=== PATIENT | male | born 1995 | race Caucasian/White ===

== ENCOUNTER 2018-11-24 13:22 | Inpatient (IN) ==
[2018-11-24] MEDS ORDERED: SODIUM CHLORIDE 0.9% 1000ML 2,000 ML IV ONE (13:27)
[2018-11-24] MEDS ORDERED: SEVERE STRESS LEVEL ONE (13:47)
[2018-11-24] MEDS ORDERED: DKA GOAL RANGE 150-250 mg/dl ONE ×2 (13:47→16:26)
[2018-11-24 13:58] LABS: iSTAT Blood Urea Nitrogen 46 mg/dl (7-18); iSTAT Carbon Dioxide 8 mEq/l (24-31); iSTAT Glucose > 700 mg/dl (70-99); iSTAT Hemoglobin 16.3 g/dl (14.0-18.0); iSTAT Ionized Calcium 1.06 mmol/l (1.12-1.32)
[2018-11-24 14:00] LABS: Hematocrit (blood only) 47.8 % (42-52); INR 1.1 (0.9-1.1); Mean Corpuscular Hgb Conc 33.5 g/dL (32-36); Mean Corpuscular Volume 94.3 fL (80-100); Mean Platelet Volume 11.8 fL (7.4-10.4); Partial Thromboplastin Time 25.7 Seconds (21.0-31.0); Platelet Count 474 K/uL (130-400); Prothrombin Time 11.4 Seconds (9.0-12.0); RDW Coefficient of Variation 13.3 % (11.5-14.5); RDW Standard Deviation 45.4 fL (36.4-46.3); Red Blood Count 5.07 M/uL (4.7-6.1); White Blood Count 29.59 K/uL (4.8-10.8)
[2018-11-24] MEDS ORDERED: NovoLIN-R BOLUS FROM BAG IV ONE (14:01)
[2018-11-24] MEDS ORDERED: GLUCAGON FOR INJ 1 MG VIAL IM PRN (14:01)
[2018-11-24] MEDS ORDERED: GLUCOSE 40% GEL 15 GM TUBE PO PRN (14:01)
[2018-11-24] MEDS ORDERED: CARBOHYDRATES FOR HYPOGLYCEMIA PO PRN (14:01)
[2018-11-24] MEDS ORDERED: GLUCOSE 10 TABS/TUBE PO PRN (14:01)
[2018-11-24] MEDS ORDERED: DEXTROSE 50% 50 ML SYRINGE IV PRN (14:01)
--- NOTE | 2018-11-24 14:08 | XRay Report ---
SINGLE VIEW CHEST CLINICAL HISTORY: Change in mental status. FINDINGS: An AP, portable, upright chest radiograph is obtained. No prior studies are available for c omparison at the time of dictation. The cardiomediastinal silhouette is unremarkable. The lungs and pleural spaces are clear. No pneumothorax is seen. The bony thorax is grossly intact. IMPRESSION: No active disease in the chest. Electronically signed by: Jaren Sosa M.D. 11/24/2018 2:07 PM
[2018-11-24 14:13] LABS: Basophils % (auto) 0.3 %; Echinocytes 1+; Eosinophils # (auto) 0.03 K/uL (0-0.5); Eosinophils % (auto) 0.1 %; Immature Granulocytes # (auto) 0.69 K/uL (0.00-0.02); Immature Granulocytes % (auto) 2.3 %; Lymphocytes # (auto) 2.26 K/uL (1.2-3.4); Lymphocytes % (auto) 7.6 %; Monocytes # (auto) 2.93 K/uL (0.11-0.59); Monocytes % (auto) 9.9 %; Neutrophils # (auto) 23.58 K/uL (1.4-6.5); Neutrophils % (auto) 79.8 %; Spherocytes 1+
[2018-11-24] MEDS: INSULIN REGULAR 250 UNITS in SODIUM CHLORIDE 0.9% 247.5 ML IV SCH (14:14)
[2018-11-24] MEDS ORDERED: SODIUM CHLORIDE 0.9% 1000ML 1,000 ML IV ONE (14:15)
[2018-11-24 14:18] LABS: Alanine Aminotransferase 19 U/L (12-78); Albumin Level 4.4 gm/dl (3.4-5.0); Aspartate Aminotransferase 6 U/L (15-37); BUN Creatinine Ratio 13.4 (10-20); Bilirubin,Total 0.6 mg/dl (0.2-1); Blood Urea Nitrogen 54 mg/dl (7-18); Calcium 7.9 mg/dl (8.5-10.1); Carbon Dioxide 6 mmol/L (21-32); Chloride 86 mmol/L (98-107); Creatinine Clr Calc Pharmacy 24.7 ml/min; Est GFR (Non-African American) 19.8; Glucose 1275 mg/dl (70-99); Magnesium 3.1 mg/dl (1.8-2.4); Potassium 5.7 mmol/L (3.5-5.1); Sodium 129 mmol/L (136-145)
[2018-11-24 14:19] LABS: Albumin Globulin Ratio 1.3 (0.9-2); Alkaline Phosphatase 118 U/L (45-117); Globulin 3.4 gm/dl (2.5-4.0); Total Protein 7.8 gm/dl (6.4-8.2); Troponin I < 0.015 ng/ml (0-0.045)
[2018-11-24] MEDS ORDERED: CEFEPIME 1,000 MG in SYRINGE 0 ML IV STA (14:21)
[2018-11-24 14:25] LABS: iSTAT Arterial Blood Gas HCO3 3 meg/L (19-24); iSTAT Carbon Dioxide < 5 mEq/l (24-31); iSTAT Hemoglobin 11.9 g/dl (14.0-18.0)
[2018-11-24 14:36] LABS: Phosphorus 12.6 mg/dl (2.5-4.9)
[2018-11-24 14:39] LABS: Appearance Urine Cloudy (Clear); Bacteria Urine Automated Negative (Negative); Bilirubin Urine Negative (Negative); Color Urine Yellow; Glucose Urine UA 3+ (Negative); Ketones Urine 2+ (Negative); Leukocyte Esterase Urine Negative (Negative); Nitrite Urine Negative (Negative); Protein Urine 2+ (Negative); Specific Gravity Urine 1.027 (1.000-1.030); Urobilinogen Urine Negative (Negative)
[2018-11-24] MEDS ORDERED: LACTATED RINGER'S 1,000 ML IV ONE (14:40)
[2018-11-24 14:47] LABS: Amphetamines+Metham, Urine Neg (Neg); Barbiturates, Urine Neg (Neg); Benzodiazepine, Urine Neg (Neg); Cocaine, Urine Neg (Neg); MDMA (Ecstacy), Urine Neg (Neg); Methadone, Urine Neg (Neg); Opiate, Urine Neg (Neg); Phencyclidine, Urine Neg (Neg)
--- NOTE | 2018-11-24 15:14 | CT Scan Report ---
CT SCAN OF THE BRAIN WITHOUT IV CONTRAST CLINICAL HISTORY: Change in mental status. COMPARISON STUDY: No priors. TECHNIQUE: Unenhanced axial CT scan of the brain is performed from the vertex to the skull base. A d ose lowering technique was utilized adhering to the principles of ALARA. The patient was scanned twic e due to motion artifact. CT DOSE: 1228.53 mGy.cm FINDINGS: Brain parenchyma: The brain parenchyma is normal in appearance. There is no hemorrhage, mass effect, or evidence of acute territorial ischemia by CT criteria. Castillo-white matter differentiation is preser brina. No extra-axial fluid collection is seen. Ventricles, sulci, cisterns: Normal in configuration. Intracranial vasculature: The visualized intracranial vasculature at the skull base is normal in appe arance. Calvarium: Unremarkable. Sinuses and mastoids: The visualized paranasal sinuses are clear. The mastoid air cells are well pneu matized. Orbits: The bony orbits are grossly intact. IMPRESSION: No acute intracranial abnormality. Electronically signed by: Jaren Sosa M.D. 11/24/2018 3:12 PM
[2018-11-24 15:26] LABS: Glucose 948 mg/dl (70-99)
--- NOTE | 2018-11-24 15:33 | History & Physical Report ---
Date of Service November 24, 2018 Assessment & Plan (1) DKA (diabetic ketoacidoses): No known hx of DM DKA protocol Pt states hx of similar but more mild sx about 2 years ago Tx at [facility] Seems unlikely this was related to hyperglycemia at that time without tx in that interval Records requested (2) Altered mental status: Improving s/p IVF and insulin CT head neg Utox neg (3) Electrolyte abnormality: HypoNa, hyperK, hyperMg, hyperPhos--in the setting of DKA Monitor via protocol as BS improves (4) Leukocytosis: UA neg for infection CXR neg for infection Flu swab pending Likely stress reaction from DKA (5) Lactic acidosis: As above Likely related to DKA (6) DVT prophylaxis: SCDs Admitted to ICU, critical care time spent >40 minutes History of Present Illness Primary Care Provider: NO PCP 23 y/o M who was brought to the ED by his roommate after being found unresponsive. Pt has been feeling unwell for the last 3 days. He has had n/v and abd cramping. He has had almost no appetite, but what he tries to eat he cannot keep down at all. He went to the gym with his roommate last week and noted that he had lost about 30 lbs in the last month. Pt states he remembers waking up this AM and feeling unwell, so he called [facility] to make an urgent appt. He remembers waiting about an hour for them to call back and then has no further memory until waking up in the ED this afternoon. Roommate is present and states he found pt unresponsive in his room. Does note that pt has been quite sick with n/v as noted above. Pt denies fever, chest pain, c/d, LE pain or swelling. Pt states he has been SOB the last few days. He has had a hard time thinking. Pt states he feels much improved. Still feels his thinking is cloudy. Still SOB. Mild nausea but no recent emesis. Pt states he has no medical hx. He does note that he had something similar happen 2 yrs ago, but not as severe. He states he lost about 10 lbs and was having n/v. He was seen at [facility] and given two medications. One he believes was an abx for an ear infection, but he does not know what the other was. He took these medications for about a week and his sx resolved. Allergies Allergy/AdvReac Type Severity Reaction Status Date / Time No Known Allergies Allergy Unverified 11/24/18 14:39 Home Medications Home Medications Medication Instructions Recorded Confirmed Type No Known Home Medications 11/24/18 11/24/18 History Past Med/Surg History Medical History No active medical problems (Acute) Social History Current Living Situation: Other Current Living Situation Comment: Roommate current occupational status: student Feels Safe at Home: Yes Smoking Status: Never smoker Hx Alcohol Use: Yes (rare) Hx Substance Use: No Review of Systems Pertinent positives and negatives reviewed in HPI--all others negative Physical Exam 2 Vital Signs (Past 24 Hours): Last Vital Signs Temp 35.9 C L 11/24/18 13:34 Pulse 154 H 11/24/18 15:20 Resp 32 H 11/24/18 15:20 BP 119/78 11/24/18 15:20 Pulse Ox 100 11/24/18 15:20 Constitutional: WD/WN, vitals as above Eyes: normal visual rae by confrontation and + anicteric sclerae Neck: normal visual inspection and trachea midline Respiratory: + respiratory distress (mild, able to talk but with slightly increased work of breathing between sentences) and + labored breathing Auscultation: no crackles and no wheezes Cardiovascular: Rate/Rhythm: regular rate and regular rhythm Gastrointestinal (Abdomen): Inspection/Auscultation: abdomen not distended Percussion/Palpation: abdomen soft; abdomen nontender Musculoskeletal: Head/Neck/Chest: normocephalic and head atraumatic negative for edema, peripheral pulses intact Skin: no rashes, warm and dry Neurologic: awake; not confused Speech / Cognition: normal speech Psychiatric: A+Ox3, euthymic affect Results & Data Diagnostic Findings CXR: neg for acute CT head: neg for acute Code Status & VTE Plan Code Status Full code VTE Prophylaxis Plan VTE Prophylaxis will be ordered: Yes _ (1) DKA (diabetic ketoacidoses) Diabetes mellitus complication detail: Diabetes mellitus type: (2) Altered mental status Altered mental status type: unspecified Coma depth: Coma timing: Qualified Code(s): R41.82 - Altered mental status, unspecified
--- NOTE | 2018-11-24 16:10 | Critical Care Consultation ---
Date of Consultation November 24, 2018 Assessment & Plan (1) Metabolic acidosis: 23yo previously healthy male presented with altered mental status in the setting of persistent nausea/vomiting and decreased PO intake x 3 days. Was found to be hyperglycemia with concern for DKA. NEURO: Initially altered but now alert and oriented s/p insulin and IVFs CAM ICU: negative CT head negative CARDIAC/VASCULAR: Remains tachycardic but hypotension improved s/p IVFs EK Sinus tachycardia with peaked T waves QTc 458 CXR: negative Trop negative x 1 PULM: Tachypneic in the setting of metabolic acidosis On 3L NC ABG: Ph 7.02, CO2 10, pO2 139 and HCO3 - 3 CXR: negative Wean O2 as tolerated GI: NPO pending improvement in glucose RENAL/LYTES: Electrolyte abnormalities and RAS due to decreased renal perfusion in the setting of DKA K 5.77, Bicarb 6, Phos 12.6, Mag 3.1, Na 129 - corrected 140 BUN/Cr 54/4 On insulin and IVFs per DKA protocol Monitor electrolytes closely per DKA protocol : [place] in place - UOP 850cc rate 0.59cc/kg/hr UA: 3+ glucose, 2+ ketones Utox: negative ENDO: Hyperglycemia with metabolic acidosis consistent with DKA No previous hx of diabetes Initial PH 7.02, bicarb 6, 2+ urine ketones, AG 38 Serum Osm pending Received 4L IVF bolus On NS 250mls/hr and insulin drip per DKA protocol - adjust accordingly and convert to SQ insulin when indicated Glycemic consult placed Monitor ABG, BMP, Mag, Phos Q4H until gap closes, glucose and electrolyte abdnormalities improve HEME: WBC 29.5 like reactive in the setting of DKA Thrombocytosis Plt 474 likely from hemoconcentration Coags wnl Monitor CBC closely ID: No infectious concern at this time BCx x 2 pending CXR negative POC lactate 6.2 and WBC 29.5 likely stress response in the setting of DKA LINES: 2 PIVs DVT prop: SCDs Code: Full Dispo: pending clinical improvement (2) Hyperglycemia: (3) DKA (diabetic ketoacidoses): (4) Altered mental status: Supervising Physician Co-Signing Physician Notes Dr. Colin was resident physician during care of patient. I separately evaluated patient for cox portions of the history and the exam. I was present during the critical portion of medical decision making, and I discussed the case with the resident. I generally agree with the findings and plan. Patient's mental status starting to improve, significant lactic acidosis along with elevated beta hydroxybutyrate. Patient will be monitored with every 4 labs hyperkalemia is likely secondary to profound metabolic acidosis which will correct as patient's acidosis corrects volume expansion with crystalloid. I have personally spent 40 minutes of critical care time in the direct management of this patient. This is a life/limb threatening event. This includes time spent evaluating patient, direct bedside care, chart review, placing orders, interpretation of diagnostic studies, discussion with consultants, patient, and/or family members regarding treatment decisions, as well as other required patient management activities. This time is exclusive of all separately billable procedures, and teaching time and separate from and in addition to any other critical care service time. History of Present Illness Reason for Consultation: DKA Requesting Physician: Dr. Dayami Nagel History of Present Illness 23yo previously healthy male without hx of diabetes presented with altered mental status and was found to have DKA. Per patient's friend, patient was not feeling well for the past 3 days. He was nauseous and vomiting. He was unable to keep anything down. Pt attempted to go to [facility] today but there was a long wait and came back to his apartment. His friend later found him unresponsive in his bathroom. There was green vomit in the toilet as well. He was brought to the ED. Per friend, he checked with pt's family and he does not have hx of diabetes. In the ED, he was found to be tachycardic to 140s (SR) and hypotensive. He was found to have glucose of 1275. On ABG, he had a PH of 7.02, CO2 was 10 and HCO3 of 3. He had electrolyte abnormalities: K 5.7, Na 129 (corrected Na 140), bicarb 6, Phos 12.6, Mag 3.1, BUN/Cr was 54/4. UA was positive for glucose and ketones. Troponin was negative. WBC was 29.5. POC lactate was 6.2. CXR was negative. Blood cultures were collected. CT head was negative. He received 3L of NS bolus and 1L or LR bolus and was started on insulin drip with improvement in his mental status. Allergies Allergy/AdvReac Type Severity Reaction Status Date / Time No Known Allergies Allergy Unverified 11/24/18 14:39 Home Medications Home Medications Medication Instructions Recorded Confirmed Type No Known Home Medications 11/24/18 11/24/18 History Patient History Medical History No active medical problems (Acute) Social History Current Living Situation: Alone Current Living Situation Comment: Roommate current occupational status: student Other Information That Helps Us Care for You: No Feels Safe at Home: Yes Smoking Status: Never smoker Do You Dip or Chew Tobacco: No Second Hand Exposure: No Tobacco Cessation Education Requested by Patient: No Hx Alcohol Use: No Hx Substance Use: No Beliefs That Will Affect Care: None Preferred Language: Guyanese Communication Ability: Effective State Pilot Required: No Review of Systems Pt currently denies any f/c, sob, cp, n/v, abdominal pain, BALLARD/dizziness. Physical Exam 2 Vital Signs (Past 24 Hours): Last Vital Signs Temp 35.9 C L 11/24/18 13:34 Pulse 148 H 11/24/18 15:40 Resp 30 H 11/24/18 15:40 BP 135/74 11/24/18 15:40 Pulse Ox 100 11/24/18 15:40 Physical Exam: General: In mild distress, resting in bed and mildly tachypneic HEENT: dry mucous membranes and fruity mouth odor Neuro: alert and oriented x 3 CV: tachycardic with regular rhythm, no m/r/g, cap refill 2 secs Pulm: CTAB equal breath sounds bilaterally Abdomen: +BS, non-distended, non-tender to palpation in all quadrants Extremities: No lower extremity edema or calf tenderss, warm to touch and well perfused Results & Data Laboratory Results Abnormal lab results 11/24/18 11/24/18 11/24/18 Range/Units 13:27 13:35 13:35 WBC 29.59 H (4.8-10.8) K/uL POC Hgb (14.0-18.0) g/dl POC Hct (42-52) % Plt Count 474 H (130-400) K/uL MPV 11.8 H (7.4-10.4) fL Immature Gran # (Auto) 0.69 H (0.00-0.02) K/uL Neut # (Auto) 23.58 H (1.4-6.5) K/uL [place] # (Auto) 2.93 H (0.11-0.59) K/uL POC pH (7.35-7.45) POC pCO2 (35-46) mmHg POC pO2 (80-95) mmHg POC HCO3 (19-24) obed/L POC Base Excess (-9-1.8) obed/L POC Sodium (135-144) mEq/L Sodium 129 L (136-145) mmol/L POC Potassium (3.3-5.0) mEq/L Potassium 5.7 H (3.5-5.1) mmol/L POC Chloride (101-112) mEq/L Chloride 86 L (98-107) mmol/L Carbon Dioxide 6 L* (21-32) mmol/L POC Total CO2 (24-31) mEq/l Anion Gap 38.0 H (3-11) POC Anion Gap (16-25) mmol/L POC BUN (7-18) mg/dl BUN 54 H (7-18) mg/dl Creatinine 4.04 H (0.6-1.4) mg/dl POC Creatinine (0.6-1.3) mg/dl Glucose 1275 H* (70-99) mg/dl POC Glucose > 600 H* (70-99) POC Glucose (other) (70-99) mg/dl POC Lactic Acid Luciano (0.90-1.70) mmol/L Calcium 7.9 L (8.5-10.1) mg/dl POC Ioniz Calcium Judith (1.12-1.32) mmol/l Phosphorus 12.6 H (2.5-4.9) mg/dl Magnesium 3.1 H (1.8-2.4) mg/dl AST 6 L (15-37) U/L Alkaline Phosphatase 118 H (45-117) U/L Urine Appearance (Clear) Urine Protein (Negative) Urine Glucose (UA) (Negative) Urine Ketones (Negative) Urine Blood (Negative) U Epithel Cells (Auto) (0-5) /lpf 11/24/18 11/24/18 11/24/18 Range/Units 13:42 13:50 14:08 WBC (4.8-10.8) K/uL POC Hgb (14.0-18.0) g/dl POC Hct (42-52) % Plt Count (130-400) K/uL MPV (7.4-10.4) fL Immature Gran # (Auto) (0.00-0.02) K/uL Neut # (Auto) (1.4-6.5) K/uL [place] # (Auto) (0.11-0.59) K/uL POC pH (7.35-7.45) POC pCO2 (35-46) mmHg POC pO2 (80-95) mmHg POC HCO3 (19-24) obed/L POC Base Excess (-9-1.8) obed/L POC Sodium 130 L (135-144) mEq/L Sodium (136-145) mmol/L POC Potassium 5.9 H (3.3-5.0) mEq/L Potassium (3.5-5.1) mmol/L POC Chloride 96 L (101-112) mEq/L Chloride (98-107) mmol/L Carbon Dioxide (21-32) mmol/L POC Total CO2 8 L* (24-31) mEq/l Anion Gap (3-11) POC Anion Gap 33.0 H (16-25) mmol/L POC BUN 46 H (7-18) mg/dl BUN (7-18) mg/dl Creatinine (0.6-1.4) mg/dl POC Creatinine 3.2 H (0.6-1.3) mg/dl Glucose (70-99) mg/dl POC Glucose (70-99) POC Glucose (other) > 700 H* (70-99) mg/dl POC Lactic Acid Luciano 6.21 H (0.90-1.70) mmol/L Calcium (8.5-10.1) mg/dl POC Ioniz Calcium Judith 1.06 L (1.12-1.32) mmol/l Phosphorus (2.5-4.9) mg/dl Magnesium (1.8-2.4) mg/dl AST (15-37) U/L Alkaline Phosphatase (45-117) U/L Urine Appearance Cloudy H (Clear) Urine Protein 2+ H (Negative) Urine Glucose (UA) 3+ H (Negative) Urine Ketones 2+ H (Negative) Urine Blood Trace H (Negative) U Epithel Cells (Auto) 10-20 H (0-5) /lpf 11/24/18 11/24/18 Range/Units 14:09 14:50 WBC (4.8-10.8) K/uL POC Hgb 11.9 L (14.0-18.0) g/dl POC Hct 35 L (42-52) % Plt Count (130-400) K/uL MPV (7.4-10.4) fL Immature Gran # (Auto) (0.00-0.02) K/uL Neut # (Auto) (1.4-6.5) K/uL [place] # (Auto) (0.11-0.59) K/uL POC pH 7.02 L* (7.35-7.45) POC pCO2 10 L (35-46) mmHg POC pO2 139 H (80-95) mmHg POC HCO3 3 L (19-24) obed/L POC Base Excess -28.0 L (-9-1.8) obed/L POC Sodium 132 L (135-144) mEq/L Sodium (136-145) mmol/L POC Potassium 5.5 H (3.3-5.0) mEq/L Potassium (3.5-5.1) mmol/L POC Chloride (101-112) mEq/L Chloride (98-107) mmol/L Carbon Dioxide (21-32) mmol/L POC Total CO2 < 5 L* (24-31) mEq/l Anion Gap (3-11) POC Anion Gap (16-25) mmol/L POC BUN (7-18) mg/dl BUN (7-18) mg/dl Creatinine (0.6-1.4) mg/dl POC Creatinine (0.6-1.3) mg/dl Glucose 948 H* (70-99) mg/dl POC Glucose (70-99) POC Glucose (other) (70-99) mg/dl POC Lactic Acid Luciano (0.90-1.70) mmol/L Calcium (8.5-10.1) mg/dl POC Ioniz Calcium Judith (1.12-1.32) mmol/l Phosphorus (2.5-4.9) mg/dl Magnesium (1.8-2.4) mg/dl AST (15-37) U/L Alkaline Phosphatase (45-117) U/L Urine Appearance (Clear) Urine Protein (Negative) Urine Glucose (UA) (Negative) Urine Ketones (Negative) Urine Blood (Negative) U Epithel Cells (Auto) (0-5) /lpf Diagnostic Findings CT SCAN OF THE BRAIN WITHOUT IV CONTRAST CLINICAL HISTORY: Change in mental status. COMPARISON STUDY: No priors. TECHNIQUE: Unenhanced axial CT scan of the brain is performed from the vertex to the skull base. A dose lowering technique was utilized adhering to the principles of ALARA. The patient was scanned twice due to motion artifact. CT DOSE: 1228.53 mGy.cm FINDINGS: Brain parenchyma: The brain parenchyma is normal in appearance. There is no hemorrhage, mass effect, or evidence of acute territorial ischemia by CT criteria. Castillo-white matter differentiation is preserved. No extra-axial fluid collection is seen. Ventricles, sulci, cisterns: Normal in configuration. Intracranial vasculature: The visualized intracranial vasculature at the skull base is normal in appearance. Calvarium: Unremarkable. Sinuses and mastoids: The visualized paranasal sinuses are clear. The mastoid air cells are well pneumatized. Orbits: The bony orbits are grossly intact. IMPRESSION: No acute intracranial abnormality. SINGLE VIEW CHEST CLINICAL HISTORY: Change in mental status. FINDINGS: An AP, portable, upright chest radiograph is obtained. No prior studies are available for comparison at the time of dictation. The cardiomediastinal silhouette is unremarkable. The lungs and pleural spaces are clear. No pneumothorax is seen. The bony thorax is grossly intact. IMPRESSION: No active disease in the chest. Electronically signed by: Jaren Sosa M.D. 11/24/2018 2:07 PM Medications Administered Current Inpatient Medications Dextrose (Dextrose 50%) 25 - 50 ml IV UD PRN; Protocol PRN Reason: Hypoglycemia Protocol Stop: 12/24/18 14:00 Glucagon (Glucagen) 1 mg IM UD PRN; Protocol PRN Reason: Hypoglycemia Protocol Stop: 12/24/18 14:00 Glucose (Glucose 40%) 15 - 30 gm PO UD PRN; Protocol PRN Reason: Hypoglycemia Protocol Stop: 12/24/18 14:00 Glucose (Dex4 Glucose) 4 - 8 tabs PO UD PRN; Protocol PRN Reason: Hypoglycemia Protocol Stop: 12/24/18 14:00 Insulin Human Regular 250 (units/ Sodium Chloride) 250 mls @ 6 mls/hr IV .Q24H [id number]; Protocol Stop: 12/24/18 13:59 Last Titration: 11/24/18 14:35 Dose: 6 units/hr, 6 mls/hr Miscellaneous (Carbohydrates For Hypoglycemia) 15 - 30 gm PO PRN PRN PRN Reason: Hypoglycemia Treatment Stop: 12/24/18 14:00 Resident Activity Tracking Resident Involvement: Resident Care Provided Care Provided: Adult [facility] Medicine _ (1) DKA (diabetic ketoacidoses) Diabetes mellitus complication detail: Diabetes mellitus type: (2) Altered mental status Altered mental status type: unspecified Coma depth: Coma timing: Qualified Code(s): R41.82 - Altered mental status, unspecified
[2018-11-24] MEDS ORDERED: ICU PROTOCOL FOR HYPERGLYCEMIA PRN (16:26)
[2018-11-24] MEDS ORDERED: SODIUM CHLORIDE 0.9% 1000ML 1,000 ML IV SCH ×2 (16:26→16:45)
[2018-11-24] MEDS ORDERED: INSULIN REGULAR 250 UNITS in SODIUM CHLORIDE 0.9% 247.5 ML IV SCH (16:26)
[2018-11-24] MEDS ORDERED: PHARMACY GLYCEMIC MGMT CONSULT PRN (16:39)
[2018-11-24] MEDS ORDERED: PENDING NSS+20mEq KCL IVF SCH (17:00)
--- NOTE | 2018-11-24 17:29 | Emergency Department Note ---
Entered by Yamini De Jesus acting as a scribe for Tj David DO History of Present Illness General Chief complaint: Hyperglycemia Stated complaint: tachycardia Source: patient, EMS and friends (roommate) Limitations: altered mental status History of Present Illness Provider complaint: hyperglycemia Onset (ago): hour(s) (today) Location: left and right Quality: + other (hyperglycemia) Associated symptoms: + nausea/vomiting (over the last 3 days per roommate); no chest pain and no shortness of breath The patient is a 23 year old male who presents to the Emergency Room with hyperglycemia today. The patient denies having nausea, vomiting, chest pain, and shortness of breath. The patient states that he does not take any medication for anything. Per EMS, the patient was tachycardic and states that the patient's blood pressure was low and that his blood sugar glucose was over 600. EMS states that the patient has no medical history. Limited HPI secondary to AMS. Per roommate, the patient lost 30 pounds over the last month and has been drinking and peeing a lot more. His roommate states that the patient has been intermittently vomiting over the last 3 days. Per roommate, the patient's friend was unable to get in contact with him since 0700 this morning. Home Medications Home Medications Medication Instructions Recorded Confirmed Type No Known Home Medications 11/24/18 11/24/18 History Allergies Allergy/AdvReac Type Severity Reaction Status Date / Time No Known Allergies Allergy Unverified 11/24/18 14:39 Past Med/Surg History Medical History No active medical problems (Acute) Social History Current Living Situation: Other Current Living Situation Comment: Roommate current occupational status: student Feels Safe at Home: Yes Smoking Status: Never smoker Hx Alcohol Use: Yes (rare) Hx Substance Use: No Review of Systems Limited ROS secondary to AMS. Physical Exam Vital Signs Vital Signs - 24 hr 11/24/18 13:33 11/24/18 13:34 11/24/18 13:41 Temperature 35.9 C L Temperature Source Rectal Sepsis Recent Fever Within 48 Hours No Sepsis New/Unexplained Change in Mental Status No Sepsis Action Taken by Nursing No Action Required Pulse Rate 136 H 140 H Pulse Rate [Right Finger] Pulse Rhythm [Right Finger] Pulse Strength [Right Finger] Respiratory Rate 30 H Respiratory Effort / Characteristics Respiratory Depth Respiratory Pattern Blood Pressure 105/51 L 118/48 L Blood Pressure [Right Arm] Blood Pressure Mean 69 71 Blood Pressure Mean [Right Arm] Blood Pressure Position [Right Arm] Pulse Oximetry 100 99 100 Oxygen Delivery Method Room Air Room Air Room Air Oxygen Flow Rate 11/24/18 13:45 11/24/18 14:02 11/24/18 14:15 Temperature Temperature Source Sepsis Recent Fever Within 48 Hours Sepsis New/Unexplained Change in Mental Status Sepsis Action Taken by Nursing Pulse Rate 140 H 139 H 143 H Pulse Rate [Right Finger] Pulse Rhythm [Right Finger] Pulse Strength [Right Finger] Respiratory Rate Respiratory Effort / Characteristics Respiratory Depth Respiratory Pattern Blood Pressure 100/52 L 110/58 L 111/59 L Blood Pressure [Right Arm] Blood Pressure Mean 68 75 76 Blood Pressure Mean [Right Arm] Blood Pressure Position [Right Arm] Pulse Oximetry 100 99 100 Oxygen Delivery Method Room Air Room Air Room Air Oxygen Flow Rate 11/24/18 14:30 11/24/18 15:20 11/24/18 15:40 Temperature Temperature Source Sepsis Recent Fever Within 48 Hours Sepsis New/Unexplained Change in Mental Status Sepsis Action Taken by Nursing Pulse Rate 144 H Pulse Rate [Right Finger] 154 H 148 H Pulse Rhythm [Right Finger] Irregular Irregular Pulse Strength [Right Finger] Bounding Bounding Respiratory Rate 32 H 30 H Respiratory Effort / Characteristics Labored Grunting Labored Respiratory Depth Deep Deep Respiratory Pattern Irregular Rapid/Shallow Rapid/Shallow Blood Pressure 107/52 L Blood Pressure [Right Arm] 119/78 135/74 Blood Pressure Mean 70 Blood Pressure Mean [Right Arm] 91 94 Blood Pressure Position [Right Arm] Lying Sitting Pulse Oximetry 99 100 100 Oxygen Delivery Method Nasal Cannula Nasal Cannula Nasal Cannula Oxygen Flow Rate 2 3 3 GENERAL: Sitting up in bed, ill-appearing, tachypneic, confused HEAD: Normocephalic, atraumatic. EARS: TMs clear bilaterally. EYE EXAM: normal conjunctiva. PERRL and EOM's grossly intact. OROPHARYNX: no exudate, no erythema, lips, buccal mucosa, and tongue normal and mucous membranes are dry NECK: supple, no nuchal rigidity, no adenopathy, non-tender LUNGS: Clear to auscultation. Normal chest wall mechanics HEART: no murmurs, S1 normal and S2 normal ABDOMEN: abdomen soft, non-tender, normo-active bowel, sounds, no masses, no rebound or guarding. BACK: Back is symmetrical on inspection and there is no deformity, no midline tenderness, no CVA tenderness. SKIN: no rashes and no bruising UPPER EXTREMITIES: upper extremities are grossly normal. LOWER EXTREMITIES: No pitting edema. NEURO EXAM: Awake, not oriented to place or time. Non-focal. Course ED COURSE: Vital signs were reviewed and showed tachycardia and hypothermia. The patients medical record was reviewed The above diagnostic studies were performed and reviewed. ED treatments and interventions as stated above. 1323: Past medical records reviewed. The patient was evaluated in room B1, and a complete history and physical examination were performed. 1330: I spoke with the patient's roommate. 1351: I checked on the patient. X-Ray is in the room. 1406: I checked on the patient. His canales catheter is in place. 1425: I updated the patient's father who is in [place]. 1432: I discussed the patient's case with Dr. Crandall who will evaluate the patient for further management. 1437: I discussed the patient's case with Dr. Nichole Diaz who will evaluate the patient for further management. Consultations Consultation #1: Dr. Crandall Time: 14:32 Consultation #2: Dr. Nichole Diaz Time: 14:37 Administered Medications Insulin Human Regular 250 (units/ Sodium Chloride) 250 mls @ 6 mls/hr IV .Q24H [facility]; Protocol Stop: 12/24/18 13:59 Last Titration: 11/24/18 14:35 Dose: 6 units/hr, 6 mls/hr Titration: 11/24/18 14:27 Dose: 5 units/hr, 5 mls/hr Admin: 11/24/18 14:14 Dose: 2.2 units/hr, 2.2 mls/hr Discontinued Medications Sodium Chloride (Nss 1000ml) 2,000 mls @ 999 mls/hr IV .Q2H1M ONE Stop: 11/24/18 15:27 Last Infusion: 11/24/18 14:15 Dose: 0 mls/hr Admin: 11/24/18 13:42 Dose: 999 mls/hr Sodium Chloride (Nss 1000ml) 1,000 mls @ 999 mls/hr IV .Q1H1M ONE Stop: 11/24/18 15:15 Last Infusion: 11/24/18 16:34 Dose: 0 mls/hr Admin: 11/24/18 14:22 Dose: 999 mls/hr Cefepime HCl 1,000 mg/ Syringe 11.3 mls @ 5.5 mls/min IV NOW STA Stop: 11/24/18 14:23 Last Admin: 11/24/18 14:39 Dose: 5.5 mls/min Lactated Ringer's (Lr) 1,000 mls @ 999 mls/hr IV .Q1H1M ONE Stop: 11/24/18 15:40 Last Infusion: 11/24/18 16:33 Dose: 0 mls/hr Admin: 11/24/18 15:29 Dose: 999 mls/hr Insulin Human Regular (Novolin R Bolus From Bag) 2 units IV ONE ONE Stop: 11/24/18 14:02 Last Admin: 11/24/18 14:14 Dose: 2 units Medical Decision Making Differential Diagnosis Differential diagnoses includes but is not limited to toxic, metabolic, infectious, traumatic, cardiac, neurologic, hematologic, psychiatric and inflammatory etiologies. Medical Records Attestation: I reviewed the patient's medical records. Home Medications Current Medication List: was personally reviewed by me Laboratory Data Attestation: I reviewed the patient's lab results. Result diagrams: 11/24/18 13:35 11/24/18 14:50 Lab Results 11/24/18 11/24/18 11/24/18 Range/Units 13:27 13:35 13:35 WBC 29.59 H (4.8-10.8) K/uL RBC 5.07 (4.7-6.1) M/uL Hgb 16.0 (14.0-18.0) g/dL POC Hgb (14.0-18.0) g/dl Hct 47.8 (42-52) % POC Hct (42-52) % MCV 94.3 (80-100) fL MCH 31.6 (25-34) pg MCHC 33.5 (32-36) g/dL RDW Std Deviation 45.4 (36.4-46.3) fL RDW Coeff of Марина 13.3 (11.5-14.5) % Plt Count 474 H (130-400) K/uL MPV 11.8 H (7.4-10.4) fL Immature Gran % (Auto) 2.3 % Neut % (Auto) 79.8 % Lymph % (Auto) 7.6 % Kleberg % (Auto) 9.9 % Eos % (Auto) 0.1 % Baso % (Auto) 0.3 % Immature Gran # (Auto) 0.69 H (0.00-0.02) K/uL Neut # (Auto) 23.58 H (1.4-6.5) K/uL Lymph # (Auto) 2.26 (1.2-3.4) K/uL Kleberg # (Auto) 2.93 H (0.11-0.59) K/uL Eos # (Auto) 0.03 (0-0.5) K/uL Baso # (Auto) 0.10 (0-0.2) K/uL Spherocytes 1+ Echinocytes 1+ PT 11.4 (9.0-12.0) Seconds INR 1.1 (0.9-1.1) APTT 25.7 (21.0-31.0) Seconds PTT Ratio 1.0 POC pH (7.35-7.45) POC pCO2 (35-46) mmHg POC pO2 (80-95) mmHg POC HCO3 (19-24) obed/L POC Base Excess (-9-1.8) obed/L POC Sodium (135-144) mEq/L Sodium (136-145) mmol/L POC Potassium (3.3-5.0) mEq/L Potassium (3.5-5.1) mmol/L POC Chloride (101-112) mEq/L Chloride (98-107) mmol/L Carbon Dioxide (21-32) mmol/L POC Total CO2 (24-31) mEq/l Anion Gap (3-11) POC Anion Gap (16-25) mmol/L POC BUN (7-18) mg/dl BUN (7-18) mg/dl Creatinine (0.6-1.4) mg/dl POC Creatinine (0.6-1.3) mg/dl Est Cr Clr Drug Dosing ml/min Est GFR ( Amer) Est GFR (Non-Af Amer) BUN/Creatinine Ratio (10-20) Glucose (70-99) mg/dl POC Glucose > 600 H* (70-99) POC Glucose (other) (70-99) mg/dl POC Lactic Acid Luciano (0.90-1.70) mmol/L Calcium (8.5-10.1) mg/dl POC Ioniz Calcium Judith (1.12-1.32) mmol/l Phosphorus (2.5-4.9) mg/dl Magnesium (1.8-2.4) mg/dl Total Bilirubin (0.2-1) mg/dl AST (15-37) U/L ALT (12-78) U/L Alkaline Phosphatase (45-117) U/L Troponin I (0-0.045) ng/ml Total Protein (6.4-8.2) gm/dl Albumin (3.4-5.0) gm/dl Globulin (2.5-4.0) gm/dl Albumin/Globulin Ratio (0.9-2) Beta-Hydroxybutyric Acd (0.2-2.81) mg/dl TSH (0.300-4.500) uIu/ml Urine Color Urine Appearance (Clear) Urine pH (4.5-7.5) Ur Specific [place] (1.000-1.030) Urine Protein (Negative) Urine Glucose (UA) (Negative) Urine Ketones (Negative) Urine Blood (Negative) Urine Nitrite (Negative) Urine Bilirubin (Negative) Urine Urobilinogen (Negative) Ur Leukocyte Esterase (Negative) Urine WBC (Auto) (0-5) /hpf Urine RBC (Auto) (0-4) /hpf U Hyaline Cast (Auto) (0-5) /lpf U Epithel Cells (Auto) (0-5) /lpf Urine Bacteria (Auto) (Negative) Urine Opiates Screen (Neg) Ur Methadone, Qual (Neg) Urine Barbiturates (Neg) Ur Phencyclidine (PCP) (Neg) U Amphetamin/Meth Scrn (Neg) MDMA (Ecstasy) Screen (Neg) U Benzodiazepines Scrn (Neg) Ur Cocaine Metabolite (Neg) U Marijuana (THC) Screen (Neg) Ethyl Alcohol mg/dL (0-3) mg/dl 11/24/18 11/24/18 11/24/18 Range/Units 13:35 13:42 13:49 WBC (4.8-10.8) K/uL RBC (4.7-6.1) M/uL Hgb (14.0-18.0) g/dL POC Hgb 16.3 (14.0-18.0) g/dl Hct (42-52) % POC Hct 48 (42-52) % MCV (80-100) fL MCH (25-34) pg MCHC (32-36) g/dL RDW Std Deviation (36.4-46.3) fL RDW Coeff of Марина (11.5-14.5) % Plt Count (130-400) K/uL MPV (7.4-10.4) fL Immature Gran % (Auto) % Neut % (Auto) % Lymph % (Auto) % Kleberg % (Auto) % Eos % (Auto) % Baso % (Auto) % Immature Gran # (Auto) (0.00-0.02) K/uL Neut # (Auto) (1.4-6.5) K/uL Lymph # (Auto) (1.2-3.4) K/uL Kleberg # (Auto) (0.11-0.59) K/uL Eos # (Auto) (0-0.5) K/uL Baso # (Auto) (0-0.2) K/uL Spherocytes Echinocytes PT (9.0-12.0) Seconds INR (0.9-1.1) APTT (21.0-31.0) Seconds PTT Ratio POC pH (7.35-7.45) POC pCO2 (35-46) mmHg POC pO2 (80-95) mmHg POC HCO3 (19-24) obed/L POC Base Excess (-9-1.8) obed/L POC Sodium 130 L (135-144) mEq/L Sodium 129 L (136-145) mmol/L POC Potassium 5.9 H (3.3-5.0) mEq/L Potassium 5.7 H (3.5-5.1) mmol/L POC Chloride 96 L (101-112) mEq/L Chloride 86 L (98-107) mmol/L Carbon Dioxide 6 L* (21-32) mmol/L POC Total CO2 8 L* (24-31) mEq/l Anion Gap 38.0 H (3-11) POC Anion Gap 33.0 H (16-25) mmol/L POC BUN 46 H (7-18) mg/dl BUN 54 H (7-18) mg/dl Creatinine 4.04 H (0.6-1.4) mg/dl POC Creatinine 3.2 H (0.6-1.3) mg/dl Est Cr Clr Drug Dosing 24.7 ml/min Est GFR ( Amer) 23.0 Est GFR (Non-Af Amer) 19.8 BUN/Creatinine Ratio 13.4 (10-20) Glucose 1275 H* (70-99) mg/dl POC Glucose (70-99) POC Glucose (other) > 700 H* (70-99) mg/dl POC Lactic Acid Luciano (0.90-1.70) mmol/L Calcium 7.9 L (8.5-10.1) mg/dl POC Ioniz Calcium Judith 1.06 L (1.12-1.32) mmol/l Phosphorus 12.6 H (2.5-4.9) mg/dl Magnesium 3.1 H (1.8-2.4) mg/dl Total Bilirubin 0.6 (0.2-1) mg/dl AST 6 L (15-37) U/L ALT 19 (12-78) U/L Alkaline Phosphatase 118 H (45-117) U/L Troponin I < 0.015 (0-0.045) ng/ml Total Protein 7.8 (6.4-8.2) gm/dl Albumin 4.4 (3.4-5.0) gm/dl Globulin 3.4 (2.5-4.0) gm/dl Albumin/Globulin Ratio 1.3 (0.9-2) Beta-Hydroxybutyric Acd (0.2-2.81) mg/dl TSH 0.679 (0.300-4.500) uIu/ml Urine Color Urine Appearance (Clear) Urine pH (4.5-7.5) Ur Specific [place] (1.000-1.030) Urine Protein (Negative) Urine Glucose (UA) (Negative) Urine Ketones (Negative) Urine Blood (Negative) Urine Nitrite (Negative) Urine Bilirubin (Negative) Urine Urobilinogen (Negative) Ur Leukocyte Esterase (Negative) Urine WBC (Auto) (0-5) /hpf Urine RBC (Auto) (0-4) /hpf U Hyaline Cast (Auto) (0-5) /lpf U Epithel Cells (Auto) (0-5) /lpf Urine Bacteria (Auto) (Negative) Urine Opiates Screen (Neg) Ur Methadone, Qual (Neg) Urine Barbiturates (Neg) Ur Phencyclidine (PCP) (Neg) U Amphetamin/Meth Scrn (Neg) MDMA (Ecstasy) Screen (Neg) U Benzodiazepines Scrn (Neg) Ur Cocaine Metabolite (Neg) U Marijuana (THC) Screen (Neg) Ethyl Alcohol mg/dL < 3.0 (0-3) mg/dl 11/24/18 11/24/18 11/24/18 Range/Units 13:50 14:08 14:08 WBC (4.8-10.8) K/uL RBC (4.7-6.1) M/uL Hgb (14.0-18.0) g/dL POC Hgb (14.0-18.0) g/dl Hct (42-52) % POC Hct (42-52) % MCV (80-100) fL MCH (25-34) pg MCHC (32-36) g/dL RDW Std Deviation (36.4-46.3) fL RDW Coeff of Марина (11.5-14.5) % Plt Count (130-400) K/uL MPV (7.4-10.4) fL Immature Gran % (Auto) % Neut % (Auto) % Lymph % (Auto) % Kleberg % (Auto) % Eos % (Auto) % Baso % (Auto) % Immature Gran # (Auto) (0.00-0.02) K/uL Neut # (Auto) (1.4-6.5) K/uL Lymph # (Auto) (1.2-3.4) K/uL [place] # (Auto) (0.11-0.59) K/uL Eos # (Auto) (0-0.5) K/uL Baso # (Auto) (0-0.2) K/uL Spherocytes Echinocytes PT (9.0-12.0) Seconds INR (0.9-1.1) APTT (21.0-31.0) Seconds PTT Ratio POC pH (7.35-7.45) POC pCO2 (35-46) mmHg POC pO2 (80-95) mmHg POC HCO3 (19-24) obed/L POC Base Excess (-9-1.8) obed/L POC Sodium (135-144) mEq/L Sodium (136-145) mmol/L POC Potassium (3.3-5.0) mEq/L Potassium (3.5-5.1) mmol/L POC Chloride (101-112) mEq/L Chloride (98-107) mmol/L Carbon Dioxide (21-32) mmol/L POC Total CO2 (24-31) mEq/l Anion Gap (3-11) POC Anion Gap (16-25) mmol/L POC BUN (7-18) mg/dl BUN (7-18) mg/dl Creatinine (0.6-1.4) mg/dl POC Creatinine (0.6-1.3) mg/dl Est Cr Clr Drug Dosing ml/min Est GFR ( Amer) Est GFR (Non-Af Amer) BUN/Creatinine Ratio (10-20) Glucose (70-99) mg/dl POC Glucose (70-99) POC Glucose (other) (70-99) mg/dl POC Lactic Acid Luciano 6.21 H (0.90-1.70) mmol/L Calcium (8.5-10.1) mg/dl POC Ioniz Calcium Judith (1.12-1.32) mmol/l Phosphorus (2.5-4.9) mg/dl Magnesium (1.8-2.4) mg/dl Total Bilirubin (0.2-1) mg/dl AST (15-37) U/L ALT (12-78) U/L Alkaline Phosphatase (45-117) U/L Troponin I (0-0.045) ng/ml Total Protein (6.4-8.2) gm/dl Albumin (3.4-5.0) gm/dl Globulin (2.5-4.0) gm/dl Albumin/Globulin Ratio (0.9-2) Beta-Hydroxybutyric Acd (0.2-2.81) mg/dl TSH (0.300-4.500) uIu/ml Urine Color Yellow Urine Appearance Cloudy H (Clear) Urine pH 5.0 (4.5-7.5) Ur Specific [place] 1.027 (1.000-1.030) Urine Protein 2+ H (Negative) Urine Glucose (UA) 3+ H (Negative) Urine Ketones 2+ H (Negative) Urine Blood Trace H (Negative) Urine Nitrite Negative (Negative) Urine Bilirubin Negative (Negative) Urine Urobilinogen Negative (Negative) Ur Leukocyte Esterase Negative (Negative) Urine WBC (Auto) 1-5 (0-5) /hpf Urine RBC (Auto) 0-4 (0-4) /hpf U Hyaline Cast (Auto) 1-5 (0-5) /lpf U Epithel Cells (Auto) 10-20 H (0-5) /lpf Urine Bacteria (Auto) Negative (Negative) Urine Opiates Screen Neg (Neg) Ur Methadone, Qual Neg (Neg) Urine Barbiturates Neg (Neg) Ur Phencyclidine (PCP) Neg (Neg) U Amphetamin/Meth Scrn Neg (Neg) MDMA (Ecstasy) Screen Neg (Neg) U Benzodiazepines Scrn Neg (Neg) Ur Cocaine Metabolite Neg (Neg) U Marijuana (THC) Screen Neg (Neg) Ethyl Alcohol mg/dL (0-3) mg/dl 11/24/18 11/24/18 Range/Units 14:09 14:50 WBC (4.8-10.8) K/uL RBC (4.7-6.1) M/uL Hgb (14.0-18.0) g/dL POC Hgb 11.9 L (14.0-18.0) g/dl Hct (42-52) % POC Hct 35 L (42-52) % MCV (80-100) fL MCH (25-34) pg MCHC (32-36) g/dL RDW Std Deviation (36.4-46.3) fL RDW Coeff of Марина (11.5-14.5) % Plt Count (130-400) K/uL MPV (7.4-10.4) fL Immature Gran % (Auto) % Neut % (Auto) % Lymph % (Auto) % [place] % (Auto) % Eos % (Auto) % Baso % (Auto) % Immature Gran # (Auto) (0.00-0.02) K/uL Neut # (Auto) (1.4-6.5) K/uL Lymph # (Auto) (1.2-3.4) K/uL [place] # (Auto) (0.11-0.59) K/uL Eos # (Auto) (0-0.5) K/uL Baso # (Auto) (0-0.2) K/uL Spherocytes Echinocytes PT (9.0-12.0) Seconds INR (0.9-1.1) APTT (21.0-31.0) Seconds PTT Ratio POC pH 7.02 L* (7.35-7.45) POC pCO2 10 L (35-46) mmHg POC pO2 139 H (80-95) mmHg POC HCO3 3 L (19-24) obed/L POC Base Excess -28.0 L (-9-1.8) obed/L POC Sodium 132 L (135-144) mEq/L Sodium (136-145) mmol/L POC Potassium 5.5 H (3.3-5.0) mEq/L Potassium (3.5-5.1) mmol/L POC Chloride (101-112) mEq/L Chloride (98-107) mmol/L Carbon Dioxide (21-32) mmol/L POC Total CO2 < 5 L* (24-31) mEq/l Anion Gap (3-11) POC Anion Gap (16-25) mmol/L POC BUN (7-18) mg/dl BUN (7-18) mg/dl Creatinine (0.6-1.4) mg/dl POC Creatinine (0.6-1.3) mg/dl Est Cr Clr Drug Dosing ml/min Est GFR ( Amer) Est GFR (Non-Af Amer) BUN/Creatinine Ratio (10-20) Glucose 948 H* (70-99) mg/dl POC Glucose (70-99) POC Glucose (other) (70-99) mg/dl POC Lactic Acid Luciano (0.90-1.70) mmol/L Calcium (8.5-10.1) mg/dl POC Ioniz Calcium Judith (1.12-1.32) mmol/l Phosphorus (2.5-4.9) mg/dl Magnesium (1.8-2.4) mg/dl Total Bilirubin (0.2-1) mg/dl AST (15-37) U/L ALT (12-78) U/L Alkaline Phosphatase (45-117) U/L Troponin I (0-0.045) ng/ml Total Protein (6.4-8.2) gm/dl Albumin (3.4-5.0) gm/dl Globulin (2.5-4.0) gm/dl Albumin/Globulin Ratio (0.9-2) Beta-Hydroxybutyric Acd TNP (0.2-2.81) mg/dl TSH (0.300-4.500) uIu/ml Urine Color Urine Appearance (Clear) Urine pH (4.5-7.5) Ur Specific [place] (1.000-1.030) Urine Protein (Negative) Urine Glucose (UA) (Negative) Urine Ketones (Negative) Urine Blood (Negative) Urine Nitrite (Negative) Urine Bilirubin (Negative) Urine Urobilinogen (Negative) Ur Leukocyte Esterase (Negative) Urine WBC (Auto) (0-5) /hpf Urine RBC (Auto) (0-4) /hpf U Hyaline Cast (Auto) (0-5) /lpf U Epithel Cells (Auto) (0-5) /lpf Urine Bacteria (Auto) (Negative) Urine Opiates Screen (Neg) Ur Methadone, Qual (Neg) Urine Barbiturates (Neg) Ur Phencyclidine (PCP) (Neg) U Amphetamin/Meth Scrn (Neg) MDMA (Ecstasy) Screen (Neg) U Benzodiazepines Scrn (Neg) Ur Cocaine Metabolite (Neg) U Marijuana (THC) Screen (Neg) Ethyl Alcohol mg/dL (0-3) mg/dl Imaging Data Radiologist's Impression: Radiology results as stated below per my review and the radiologist's interpretation: SINGLE VIEW CHEST CLINICAL HISTORY: Change in mental status. FINDINGS: An AP, portable, upright chest radiograph is obtained. No prior studies are available for comparison at the time of dictation. The cardiomediastinal silhouette is unremarkable. The lungs and pleural spaces are clear. No pneumothorax is seen. The bony thorax is grossly intact. IMPRESSION: No active disease in the chest. Electronically signed by: Jaren Sosa M.D. 11/24/2018 2:[address] SCAN OF THE BRAIN WITHOUT IV CONTRAST CLINICAL HISTORY: Change in mental status. COMPARISON STUDY: No priors. TECHNIQUE: Unenhanced axial CT scan of the brain is performed from the vertex to the skull base. A dose lowering technique was utilized adhering to the principles of ALARA. The patient was scanned twice due to motion artifact. CT DOSE: 1228.53 mGy.cm FINDINGS: Brain parenchyma: The brain parenchyma is normal in appearance. There is no hemorrhage, mass effect, or evidence of acute territorial ischemia by CT criteria. Castillo-white matter differentiation is preserved. No extra-axial fluid collection is seen. Ventricles, sulci, cisterns: Normal in configuration. Intracranial vasculature: The visualized intracranial vasculature at the skull base is normal in appearance. Calvarium: Unremarkable. Sinuses and mastoids: The visualized paranasal sinuses are clear. The mastoid air cells are well pneumatized. Orbits: The bony orbits are grossly intact. IMPRESSION: No acute intracranial abnormality. Electronically signed by: Jaren Sosa M.D. 11/24/2018 3:12 PM ECG Data Attestation: I personally reviewed and interpreted this ECG as follows: Indication: altered mental status Rate (beats per minute): 140 Rhythm: sinus tachycardia Findings: + other (normal axis, peaked T waves) and + ST depression Blood Pressure Blood Pressure Findings: Low blood pressure Blood Pressure Disposition: further management by hospitalist CAYETANO Narrative Patient is a 23-year-old male who presents the ER via EMS who I received medical command call on. Upon presentation to ER he is confused and altered. Heart rate is in the 150s. Respirations are in the 30s. Temp is 35.9. BSG is critically high. Labs were obtained and showed a leukocytosis of 30,000. INR was unremarkable. ABG showed a pH of 7.02. Bicarb was 3. BMP with hyperkalemia at 5.9. Creatinine was significant elevated in the threes. Initial glucose was 1200. Lactate was 6.1. UA with ketones. Chest x-ray unremarkable. CT head was negative. Patient was given 3 L IV normal saline and 1 L lactated Ringer's IV bolus. Patient was placed on insulin drip and given insulin bolus. He was monitored closely. He was discussed with the construction cost estimator. BSG dropped to the 900s. I updated his family i.e. father via telephone. They are on their way back from [place]. Discussed with his roommate as well. Patient was updated as best as he could be at bedside and was admitted to the ICU under the hospitalist and construction cost estimator. Impression & Plan DKA (diabetic ketoacidoses), Metabolic acidosis, Elevated lactic acid level, Hyperglycemia, Hyperkalemia, Altered mental status Critical Care Time I have personally spent 35 minutes of critical care time in the direct management of this patient. This includes bedside care, interpretation of diagnostic studies, and testing, discussion with consultants, patient, and family members, and other required patient management activities. This 35 minutes is in excess of all separately billable procedures. Critical Care Time: Yes Total Critical Care Time: 35 Discharge Plan Visit Data *Final* Discharge Date/Time: 11/24/18 15:55 Chief Complaint: Hyperglycemia Stated Complaint: tachycardia ED Provider: Tj David Discharge Problem: DKA (diabetic ketoacidoses), Metabolic acidosis, Elevated lactic acid level, Hyperglycemia, Hyperkalemia, Altered mental status Patient Disposition: Admitted As Inpatient Discharge Instructions Interventions: ED Discharge Assessment Last Done: 11/24/18 15:55 The scribe's documentation has been prepared under my direction and personally reviewed by me in its entirety. I confirm that the note above accurately reflects all work, treatment, procedures, and medical decision making performed by me.
[2018-11-24 17:39] LABS: Hematocrit (blood only) 40.3 % (42-52); Hemoglobin 14.9 g/dL (14.0-18.0); Mean Corpuscular Volume 87.4 fL (80-100); Mean Platelet Volume 11.1 fL (7.4-10.4); Platelet Count 291 K/uL (130-400); RDW Coefficient of Variation 12.4 % (11.5-14.5); RDW Standard Deviation 39.6 fL (36.4-46.3); Red Blood Count 4.61 M/uL (4.7-6.1); White Blood Count 24.76 K/uL (4.8-10.8)
[2018-11-24 17:43] LABS: Albumin Globulin Ratio 1.3 (0.9-2); Albumin Level 3.8 gm/dl (3.4-5.0); BUN Creatinine Ratio 19.3 (10-20); Bilirubin,Total 0.6 mg/dl (0.2-1); Calcium 7.9 mg/dl (8.5-10.1); Creatinine Clr Calc Pharmacy 40.8 ml/min; Est GFR (African American) 43.1; Est GFR (Non-African American) 37.2; Globulin 2.9 gm/dl (2.5-4.0); Magnesium 2.6 mg/dl (1.8-2.4); Phosphorus 1.3 mg/dl (2.5-4.9); Total Protein 6.7 gm/dl (6.4-8.2)
[2018-11-24 17:46] LABS: Potassium 4.4 mmol/L (3.5-5.1)
[2018-11-24] MEDS: PENDING D5 1/2NS+20mEq KCL IVF SCH ×2 (17:58→19:11)
[2018-11-24 18:07] LABS: Basophils # (auto) 0.02 K/uL (0-0.2); Basophils % (auto) 0.1 %; Immature Granulocytes # (auto) 0.29 K/uL (0.00-0.02); Immature Granulocytes % (auto) 1.2 %; Lymphocytes # (auto) 2.75 K/uL (1.2-3.4); Lymphocytes % (auto) 11.8 %; Monocytes # (auto) 2.33 K/uL (0.11-0.59); Neutrophils % (auto) 76.9 %
[2018-11-24] MEDS ORDERED: NSS + 20MEQ KCL 20 MEQ/1,000 ML BAG IV SCH (18:15)
[2018-11-24] MEDS: INSULIN ASPART 100 UNITS/ML 3 ML PEN SC SCH ×2 (18:18→21:41)
[2018-11-24] MEDS ORDERED: D5NSS + 20MEQ KCL 20 MEQ/1,000 ML BAG IV SCH (20:30)
[2018-11-24 21:00] LABS: BUN Creatinine Ratio 20.4 (10-20); Calcium 8.3 mg/dl (8.5-10.1); Est GFR (African American) 61.8; Est GFR (Non-African American) 53.3; Magnesium 2.5 mg/dl (1.8-2.4); Phosphorus 1.3 mg/dl (2.5-4.9); Potassium 4.7 mmol/L (3.5-5.1)
[2018-11-24] MEDS: D5W AND 1/2NSS + 20MEQ KCL 20 MEQ/1,000 ML BAG IV SCH (21:15)
[2018-11-25] MEDS: D5W AND 1/2NSS + 20MEQ KCL 20 MEQ/1,000 ML BAG IV SCH ×3 (01:18→09:09)
[2018-11-25 01:24] LABS: Calcium 8.1 mg/dl (8.5-10.1); Creatinine Clr Calc Pharmacy 60.8 ml/min; Est GFR (African American) 69.8; Est GFR (Non-African American) 60.2; Magnesium 2.3 mg/dl (1.8-2.4); Phosphorus 1.6 mg/dl (2.5-4.9); Potassium 4.7 mmol/L (3.5-5.1)
[2018-11-25] MEDS ORDERED: NORMOSOL-R 500 ML IV ONE (02:43)
[2018-11-25 04:26] LABS: Basophils # (auto) 0.02 K/uL (0-0.2); Basophils % (auto) 0.1 %; Hematocrit (blood only) 36.4 % (42-52); Hemoglobin 13.1 g/dL (14.0-18.0); Immature Granulocytes # (auto) 0.06 K/uL (0.00-0.02); Immature Granulocytes % (auto) 0.4 %; Lymphocytes # (auto) 2.04 K/uL (1.2-3.4); Lymphocytes % (auto) 12.1 %; Mean Corpuscular Volume 86.7 fL (80-100); Mean Platelet Volume 10.4 fL (7.4-10.4); Monocytes # (auto) 1.79 K/uL (0.11-0.59); Monocytes % (auto) 10.6 %; Neutrophils # (auto) 12.98 K/uL (1.4-6.5); Neutrophils % (auto) 76.8 %; Platelet Count 256 K/uL (130-400); RDW Coefficient of Variation 12.8 % (11.5-14.5); RDW Standard Deviation 40.3 fL (36.4-46.3); White Blood Count 16.89 K/uL (4.8-10.8)
[2018-11-25 04:48] LABS: BUN Creatinine Ratio 15.2 (10-20); Calcium 7.9 mg/dl (8.5-10.1); Creatinine Clr Calc Pharmacy 73.6 ml/min; Est GFR (African American) 87.9; Est GFR (Non-African American) 75.9; Magnesium 2.2 mg/dl (1.8-2.4); Phosphorus 2.4 mg/dl (2.5-4.9); Potassium 4.1 mmol/L (3.5-5.1)
[2018-11-25 06:27] LABS: Estimated Average Glucose 309 mg/dl
--- NOTE | 2018-11-25 08:00 | Critical Care Progress Note ---
Date of Service November 25, 2018 Assessment & Plan (1) Metabolic acidosis: 23yo previously healthy male presented with altered mental status in the setting of persistent nausea/vomiting and decreased PO intake x 3 days. Was found to be hyperglycemia with concern for DKA. NEURO: Initially altered but now alert and oriented s/p insulin and IVFs CAM ICU: negative CT head negative CARDIAC/VASCULAR: Initially tachycardic and hypotensive. Now HD stable EK Sinus tachycardia with peaked T waves QTc 458 CXR: negative Trop negative x 1 PULM: Initially tachypneic in the setting of metabolic acidosis On RA now Initial ABG: Ph 7.02, CO2 10, pO2 139 and HCO3 - 3 --> PH corrected to 7.37 CXR: negative GI: DM1 diet RENAL/LYTES: Initial electrolyte abnormalities and RAS due to decreased renal perfusion in the setting of DKA Bicarb 17 BUN/Cr 54/4 --> 20/1.3 Received insulin drip and IVFs per DKA protocol --> Now on 250cc of D51/2NS with 20 meq KCL and transitioned to subQ lantus Continue to monitor electrolytes and BMP : Canales in place - UOP 4.9cc/kg/hr Initial UA: 3+ glucose, 2+ ketones Utox: negative ENDO: Hyperglycemia with metabolic acidosis consistent with DKA - IMPROVING No previous hx of diabetes Initial PH 7.02, bicarb 6, 2+ urine ketones, AG 38 --> NOW AG 9, bicarb 17, PH 7.37 Serum Osm 358 Received 4L IVF bolus Glycemic consult On IVF containing dextrose now and insulin drip per DKA protocol - converted to SQ insulin Continue to monitor BMP and electrolytes HEME: WBC 29.5 like reactive in the setting of DKA. Improved to 16.8 today Coags wnl Monitor CBC ID: No infectious concern at this time BCx x 2 pending CXR negative Lactate 0.7 WBC improved likely stress response in the setting of DKA LINES: 2 PIVs DVT prop: SCDs Code: Full Dispo: to medical given significant clinical improvement (2) Hyperglycemia: (3) DKA (diabetic ketoacidoses): (4) Altered mental status: Supervising Physician Co-Signing Physician Notes Dr. Colin was resident physician during care of patient. I separately evaluated patient for cox portions of the history and the exam. I was present during the critical portion of medical decision making, and I discussed the case with the resident. I generally agree with the findings and plan. Patient was discussed in multidisciplinary round, patient is eating and drinking at this time. Nearly closed, bicarb 17 at 4 AM on dextrose containing infusion at this time. 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 Starting long-acting subcutaneous insulin Subjective This AM pt eating and drinking. AG 9 and bicarb 17. Pt transitioned to IVF with dextrose and subQ lantus. Pt tired this AM. Denies any f/c, cp, sob, abdominal pain, n/v, pain in extremities. Has canales. Physical Exam 2 Vital Signs (Past 24 Hours): Last Vital Signs Temp 36.8 C 11/25/18 04:00 Pulse 86 11/25/18 06:00 Resp 18 11/25/18 06:00 BP 101/60 11/25/18 06:00 Pulse Ox 99 11/25/18 06:00 Physical Exam: General: In NAD, resting in bed Neuro: alert and oriented x 4 CV: RRR, no m/r/g Pulm: CTAB equal breath sounds bilaterally Abdomen: +BS, non-distended, non-tender to palpation in all quadrants Extremities: No lower extremity edema or calf tenderness, warm to touch and well perfused Results & Data Laboratory Results Abnormal lab results 11/24/18 11/24/18 11/24/18 Range/Units 13:27 13:35 13:35 WBC 29.59 H (4.8-10.8) K/uL RBC (4.7-6.1) M/uL Hgb (14.0-18.0) g/dL POC Hgb (14.0-18.0) g/dl Hct (42-52) % POC Hct (42-52) % MCHC (32-36) g/dL Plt Count 474 H (130-400) K/uL MPV 11.8 H (7.4-10.4) fL Immature Gran # (Auto) 0.69 H (0.00-0.02) K/uL Neut # (Auto) 23.58 H (1.4-6.5) K/uL [place] # (Auto) 2.93 H (0.11-0.59) K/uL POC pH (7.35-7.45) POC pCO2 (35-46) mmHg POC pO2 (80-95) mmHg POC HCO3 (19-24) obed/L POC Base Excess (-9-1.8) obed/L VBG pH (7.36-7.41) POC Sodium (135-144) mEq/L Sodium 129 L (136-145) mmol/L POC Potassium (3.3-5.0) mEq/L Potassium 5.7 H (3.5-5.1) mmol/L POC Chloride (101-112) mEq/L Chloride 86 L (98-107) mmol/L Carbon Dioxide 6 L* (21-32) mmol/L POC Total CO2 (24-31) mEq/l Anion Gap 38.0 H (3-11) POC Anion Gap (16-25) mmol/L POC BUN (7-18) mg/dl BUN 54 H (7-18) mg/dl Creatinine 4.04 H (0.6-1.4) mg/dl POC Creatinine (0.6-1.3) mg/dl BUN/Creatinine Ratio (10-20) Glucose 1275 H* (70-99) mg/dl POC Glucose > 600 H* (70-99) POC Glucose (other) (70-99) mg/dl Hemoglobin A1c (4.5-5.6) % Osmolality (280-300) mOsm/kg POC Lactic Acid Luciano (0.90-1.70) mmol/L Calcium 7.9 L (8.5-10.1) mg/dl POC Ioniz Calcium Judith (1.12-1.32) mmol/l Phosphorus 12.6 H (2.5-4.9) mg/dl Magnesium 3.1 H (1.8-2.4) mg/dl AST 6 L (15-37) U/L Alkaline Phosphatase 118 H (45-117) U/L Beta-Hydroxybutyric Acd (0.2-2.81) mg/dl Urine Appearance (Clear) Urine Protein (Negative) Urine Glucose (UA) (Negative) Urine Ketones (Negative) Urine Blood (Negative) U Epithel Cells (Auto) (0-5) /lpf 11/24/18 11/24/18 11/24/18 Range/Units 13:42 13:50 14:08 WBC (4.8-10.8) K/uL RBC (4.7-6.1) M/uL Hgb (14.0-18.0) g/dL POC Hgb (14.0-18.0) g/dl Hct (42-52) % POC Hct (42-52) % MCHC (32-36) g/dL Plt Count (130-400) K/uL MPV (7.4-10.4) fL Immature Gran # (Auto) (0.00-0.02) K/uL Neut # (Auto) (1.4-6.5) K/uL [place] # (Auto) (0.11-0.59) K/uL POC pH (7.35-7.45) POC pCO2 (35-46) mmHg POC pO2 (80-95) mmHg POC HCO3 (19-24) obed/L POC Base Excess (-9-1.8) obed/L VBG pH (7.36-7.41) POC Sodium 130 L (135-144) mEq/L Sodium (136-145) mmol/L POC Potassium 5.9 H (3.3-5.0) mEq/L Potassium (3.5-5.1) mmol/L POC Chloride 96 L (101-112) mEq/L Chloride (98-107) mmol/L Carbon Dioxide (21-32) mmol/L POC Total CO2 8 L* (24-31) mEq/l Anion Gap (3-11) POC Anion Gap 33.0 H (16-25) mmol/L POC BUN 46 H (7-18) mg/dl BUN (7-18) mg/dl Creatinine (0.6-1.4) mg/dl POC Creatinine 3.2 H (0.6-1.3) mg/dl BUN/Creatinine Ratio (10-20) Glucose (70-99) mg/dl POC Glucose (70-99) POC Glucose (other) > 700 H* (70-99) mg/dl Hemoglobin A1c (4.5-5.6) % Osmolality (280-300) mOsm/kg POC Lactic Acid Luciano 6.21 H (0.90-1.70) mmol/L Calcium (8.5-10.1) mg/dl POC Ioniz Calcium Judith 1.06 L (1.12-1.32) mmol/l Phosphorus (2.5-4.9) mg/dl Magnesium (1.8-2.4) mg/dl AST (15-37) U/L Alkaline Phosphatase (45-117) U/L Beta-Hydroxybutyric Acd (0.2-2.81) mg/dl Urine Appearance Cloudy H (Clear) Urine Protein 2+ H (Negative) Urine Glucose (UA) 3+ H (Negative) Urine Ketones 2+ H (Negative) Urine Blood Trace H (Negative) U Epithel Cells (Auto) 10-20 H (0-5) /lpf 11/24/18 11/24/18 11/24/18 Range/Units 14:09 14:50 16:49 WBC (4.8-10.8) K/uL RBC (4.7-6.1) M/uL Hgb (14.0-18.0) g/dL POC Hgb 11.9 L (14.0-18.0) g/dl Hct (42-52) % POC Hct 35 L (42-52) % MCHC (32-36) g/dL Plt Count (130-400) K/uL MPV (7.4-10.4) fL Immature Gran # (Auto) (0.00-0.02) K/uL Neut # (Auto) (1.4-6.5) K/uL [place] # (Auto) (0.11-0.59) K/uL POC pH 7.02 L* (7.35-7.45) POC pCO2 10 L (35-46) mmHg POC pO2 139 H (80-95) mmHg POC HCO3 3 L (19-24) obed/L POC Base Excess -28.0 L (-9-1.8) obed/L VBG pH (7.36-7.41) POC Sodium 132 L (135-144) mEq/L Sodium (136-145) mmol/L POC Potassium 5.5 H (3.3-5.0) mEq/L Potassium (3.5-5.1) mmol/L POC Chloride (101-112) mEq/L Chloride (98-107) mmol/L Carbon Dioxide (21-32) mmol/L POC Total CO2 < 5 L* (24-31) mEq/l Anion Gap (3-11) POC Anion Gap (16-25) mmol/L POC BUN (7-18) mg/dl BUN (7-18) mg/dl Creatinine (0.6-1.4) mg/dl POC Creatinine (0.6-1.3) mg/dl BUN/Creatinine Ratio (10-20) Glucose 948 H* (70-99) mg/dl POC Glucose (70-99) POC Glucose (other) (70-99) mg/dl Hemoglobin A1c (4.5-5.6) % Osmolality 358 H* (280-300) mOsm/kg POC Lactic Acid Luciano (0.90-1.70) mmol/L Calcium (8.5-10.1) mg/dl POC Ioniz Calcium Judith (1.12-1.32) mmol/l Phosphorus (2.5-4.9) mg/dl Magnesium (1.8-2.4) mg/dl AST (15-37) U/L Alkaline Phosphatase (45-117) U/L Beta-Hydroxybutyric Acd (0.2-2.81) mg/dl Urine Appearance (Clear) Urine Protein (Negative) Urine Glucose (UA) (Negative) Urine Ketones (Negative) Urine Blood (Negative) U Epithel Cells (Auto) (0-5) /lpf 11/24/18 11/24/18 11/24/18 Range/Units 16:49 16:49 16:49 WBC 24.76 H (4.8-10.8) K/uL RBC 4.61 L (4.7-6.1) M/uL Hgb (14.0-18.0) g/dL POC Hgb (14.0-18.0) g/dl Hct 40.3 L (42-52) % POC Hct (42-52) % MCHC 37.0 H (32-36) g/dL Plt Count (130-400) K/uL MPV 11.1 H (7.4-10.4) fL Immature Gran # (Auto) 0.29 H (0.00-0.02) K/uL Neut # (Auto) 18.00 H (1.4-6.5) K/uL [place] # (Auto) 2.33 H (0.11-0.59) K/uL POC pH (7.35-7.45) POC pCO2 (35-46) mmHg POC pO2 (80-95) mmHg POC HCO3 (19-24) obed/L POC Base Excess (-9-1.8) obed/L VBG pH (7.36-7.41) POC Sodium (135-144) mEq/L Sodium (136-145) mmol/L POC Potassium (3.3-5.0) mEq/L Potassium (3.5-5.1) mmol/L POC Chloride (101-112) mEq/L Chloride 111 H (98-107) mmol/L Carbon Dioxide 8 L* (21-32) mmol/L POC Total CO2 (24-31) mEq/l Anion Gap 25.0 H (3-11) POC Anion Gap (16-25) mmol/L POC BUN (7-18) mg/dl BUN 46 H (7-18) mg/dl Creatinine 2.40 H D (0.6-1.4) mg/dl POC Creatinine (0.6-1.3) mg/dl BUN/Creatinine Ratio (10-20) Glucose 585 H* (70-99) mg/dl POC Glucose (70-99) POC Glucose (other) (70-99) mg/dl Hemoglobin A1c 12.4 H (4.5-5.6) % Osmolality (280-300) mOsm/kg POC Lactic Acid Luciano (0.90-1.70) mmol/L Calcium 7.9 L (8.5-10.1) mg/dl POC Ioniz Calcium Judith (1.12-1.32) mmol/l Phosphorus 1.3 L* D (2.5-4.9) mg/dl Magnesium 2.6 H (1.8-2.4) mg/dl AST 5 L (15-37) U/L Alkaline Phosphatase (45-117) U/L Beta-Hydroxybutyric Acd 112.33 H (0.2-2.81) mg/dl Urine Appearance (Clear) Urine Protein (Negative) Urine Glucose (UA) (Negative) Urine Ketones (Negative) Urine Blood (Negative) U Epithel Cells (Auto) (0-5) /lpf 11/24/18 11/24/18 11/24/18 Range/Units 16:49 18:40 19:21 WBC (4.8-10.8) K/uL RBC (4.7-6.1) M/uL Hgb (14.0-18.0) g/dL POC Hgb (14.0-18.0) g/dl Hct (42-52) % POC Hct (42-52) % MCHC (32-36) g/dL Plt Count (130-400) K/uL MPV (7.4-10.4) fL Immature Gran # (Auto) (0.00-0.02) K/uL Neut # (Auto) (1.4-6.5) K/uL [place] # (Auto) (0.11-0.59) K/uL POC pH (7.35-7.45) POC pCO2 (35-46) mmHg POC pO2 (80-95) mmHg POC HCO3 (19-24) obed/L POC Base Excess (-9-1.8) obed/L VBG pH 7.24 L (7.36-7.41) POC Sodium (135-144) mEq/L Sodium (136-145) mmol/L POC Potassium (3.3-5.0) mEq/L Potassium (3.5-5.1) mmol/L POC Chloride (101-112) mEq/L Chloride (98-107) mmol/L Carbon Dioxide (21-32) mmol/L POC Total CO2 (24-31) mEq/l Anion Gap (3-11) POC Anion Gap (16-25) mmol/L POC BUN (7-18) mg/dl BUN (7-18) mg/dl Creatinine (0.6-1.4) mg/dl POC Creatinine (0.6-1.3) mg/dl BUN/Creatinine Ratio (10-20) Glucose (70-99) mg/dl POC Glucose 486 H* 429 H* (70-99) POC Glucose (other) (70-99) mg/dl Hemoglobin A1c (4.5-5.6) % Osmolality (280-300) mOsm/kg POC Lactic Acid Luciano (0.90-1.70) mmol/L Calcium (8.5-10.1) mg/dl POC Ioniz Calcium Judith (1.12-1.32) mmol/l Phosphorus (2.5-4.9) mg/dl Magnesium (1.8-2.4) mg/dl AST (15-37) U/L Alkaline Phosphatase (45-117) U/L Beta-Hydroxybutyric Acd (0.2-2.81) mg/dl Urine Appearance (Clear) Urine Protein (Negative) Urine Glucose (UA) (Negative) Urine Ketones (Negative) Urine Blood (Negative) U Epithel Cells (Auto) (0-5) /lpf 11/24/18 11/24/18 11/24/18 Range/Units 20:28 20:29 20:29 WBC (4.8-10.8) K/uL RBC (4.7-6.1) M/uL Hgb (14.0-18.0) g/dL POC Hgb (14.0-18.0) g/dl Hct (42-52) % POC Hct (42-52) % MCHC (32-36) g/dL Plt Count (130-400) K/uL MPV (7.4-10.4) fL Immature Gran # (Auto) (0.00-0.02) K/uL Neut # (Auto) (1.4-6.5) K/uL [place] # (Auto) (0.11-0.59) K/uL POC pH (7.35-7.45) POC pCO2 (35-46) mmHg POC pO2 (80-95) mmHg POC HCO3 (19-24) obed/L POC Base Excess (-9-1.8) obed/L VBG pH 7.28 L (7.36-7.41) POC Sodium (135-144) mEq/L Sodium 148 H (136-145) mmol/L POC Potassium (3.3-5.0) mEq/L Potassium (3.5-5.1) mmol/L POC Chloride (101-112) mEq/L Chloride 118 H (98-107) mmol/L Carbon Dioxide 9 L* (21-32) mmol/L POC Total CO2 (24-31) mEq/l Anion Gap 21.0 H (3-11) POC Anion Gap (16-25) mmol/L POC BUN (7-18) mg/dl BUN 36 H (7-18) mg/dl Creatinine 1.78 H D (0.6-1.4) mg/dl POC Creatinine (0.6-1.3) mg/dl BUN/Creatinine Ratio 20.4 H (10-20) Glucose 352 H* (70-99) mg/dl POC Glucose 339 H (70-99) POC Glucose (other) (70-99) mg/dl Hemoglobin A1c (4.5-5.6) % Osmolality (280-300) mOsm/kg POC Lactic Acid Luciano (0.90-1.70) mmol/L Calcium 8.3 L (8.5-10.1) mg/dl POC Ioniz Calcium Judith (1.12-1.32) mmol/l Phosphorus 1.3 L* (2.5-4.9) mg/dl Magnesium 2.5 H (1.8-2.4) mg/dl AST (15-37) U/L Alkaline Phosphatase (45-117) U/L Beta-Hydroxybutyric Acd 106.53 H (0.2-2.81) mg/dl Urine Appearance (Clear) Urine Protein (Negative) Urine Glucose (UA) (Negative) Urine Ketones (Negative) Urine Blood (Negative) U Epithel Cells (Auto) (0-5) /lpf 11/24/18 11/24/18 11/24/18 Range/Units 21:33 22:36 23:36 WBC (4.8-10.8) K/uL RBC (4.7-6.1) M/uL Hgb (14.0-18.0) g/dL POC Hgb (14.0-18.0) g/dl Hct (42-52) % POC Hct (42-52) % MCHC (32-36) g/dL Plt Count (130-400) K/uL MPV (7.4-10.4) fL Immature Gran # (Auto) (0.00-0.02) K/uL Neut # (Auto) (1.4-6.5) K/uL [place] # (Auto) (0.11-0.59) K/uL POC pH (7.35-7.45) POC pCO2 (35-46) mmHg POC pO2 (80-95) mmHg POC HCO3 (19-24) obed/L POC Base Excess (-9-1.8) obed/L VBG pH (7.36-7.41) POC Sodium (135-144) mEq/L Sodium (136-145) mmol/L POC Potassium (3.3-5.0) mEq/L Potassium (3.5-5.1) mmol/L POC Chloride (101-112) mEq/L Chloride (98-107) mmol/L Carbon Dioxide (21-32) mmol/L POC Total CO2 (24-31) mEq/l Anion Gap (3-11) POC Anion Gap (16-25) mmol/L POC BUN (7-18) mg/dl BUN (7-18) mg/dl Creatinine (0.6-1.4) mg/dl POC Creatinine (0.6-1.3) mg/dl BUN/Creatinine Ratio (10-20) Glucose (70-99) mg/dl POC Glucose 355 H* 451 H* 390 H* (70-99) POC Glucose (other) (70-99) mg/dl Hemoglobin A1c (4.5-5.6) % Osmolality (280-300) mOsm/kg POC Lactic Acid Luciano (0.90-1.70) mmol/L Calcium (8.5-10.1) mg/dl POC Ioniz Calcium Judith (1.12-1.32) mmol/l Phosphorus (2.5-4.9) mg/dl Magnesium (1.8-2.4) mg/dl AST (15-37) U/L Alkaline Phosphatase (45-117) U/L Beta-Hydroxybutyric Acd (0.2-2.81) mg/dl Urine Appearance (Clear) Urine Protein (Negative) Urine Glucose (UA) (Negative) Urine Ketones (Negative) Urine Blood (Negative) U Epithel Cells (Auto) (0-5) /lpf 11/25/18 11/25/18 11/25/18 Range/Units 00:23 00:24 00:29 WBC (4.8-10.8) K/uL RBC (4.7-6.1) M/uL Hgb (14.0-18.0) g/dL POC Hgb (14.0-18.0) g/dl Hct (42-52) % POC Hct (42-52) % MCHC (32-36) g/dL Plt Count (130-400) K/uL MPV (7.4-10.4) fL Immature Gran # (Auto) (0.00-0.02) K/uL Neut # (Auto) (1.4-6.5) K/uL [place] # (Auto) (0.11-0.59) K/uL POC pH (7.35-7.45) POC pCO2 (35-46) mmHg POC pO2 (80-95) mmHg POC HCO3 (19-24) obed/L POC Base Excess (-9-1.8) obed/L VBG pH 7.32 L (7.36-7.41) POC Sodium (135-144) mEq/L Sodium 147 H (136-145) mmol/L POC Potassium (3.3-5.0) mEq/L Potassium (3.5-5.1) mmol/L POC Chloride (101-112) mEq/L Chloride 121 H (98-107) mmol/L Carbon Dioxide 14 L (21-32) mmol/L POC Total CO2 (24-31) mEq/l Anion Gap 12.0 H (3-11) POC Anion Gap (16-25) mmol/L POC BUN (7-18) mg/dl BUN 27 H (7-18) mg/dl Creatinine 1.61 H (0.6-1.4) mg/dl POC Creatinine (0.6-1.3) mg/dl BUN/Creatinine Ratio (10-20) Glucose 385 H* (70-99) mg/dl POC Glucose 371 H* (70-99) POC Glucose (other) (70-99) mg/dl Hemoglobin A1c (4.5-5.6) % Osmolality (280-300) mOsm/kg POC Lactic Acid Luciano (0.90-1.70) mmol/L Calcium 8.1 L (8.5-10.1) mg/dl POC Ioniz Calcium Judith (1.12-1.32) mmol/l Phosphorus 1.6 L (2.5-4.9) mg/dl Magnesium (1.8-2.4) mg/dl AST (15-37) U/L Alkaline Phosphatase (45-117) U/L Beta-Hydroxybutyric Acd 60.74 H (0.2-2.81) mg/dl Urine Appearance (Clear) Urine Protein (Negative) Urine Glucose (UA) (Negative) Urine Ketones (Negative) Urine Blood (Negative) U Epithel Cells (Auto) (0-5) /lpf 11/25/18 11/25/18 11/25/18 Range/Units 01:32 02:42 03:45 WBC (4.8-10.8) K/uL RBC (4.7-6.1) M/uL Hgb (14.0-18.0) g/dL POC Hgb (14.0-18.0) g/dl Hct (42-52) % POC Hct (42-52) % MCHC (32-36) g/dL Plt Count (130-400) K/uL MPV (7.4-10.4) fL Immature Gran # (Auto) (0.00-0.02) K/uL Neut # (Auto) (1.4-6.5) K/uL [place] # (Auto) (0.11-0.59) K/uL POC pH (7.35-7.45) POC pCO2 (35-46) mmHg POC pO2 (80-95) mmHg POC HCO3 (19-24) obed/L POC Base Excess (-9-1.8) obed/L VBG pH (7.36-7.41) POC Sodium (135-144) mEq/L Sodium (136-145) mmol/L POC Potassium (3.3-5.0) mEq/L Potassium (3.5-5.1) mmol/L POC Chloride (101-112) mEq/L Chloride (98-107) mmol/L Carbon Dioxide (21-32) mmol/L POC Total CO2 (24-31) mEq/l Anion Gap (3-11) POC Anion Gap (16-25) mmol/L POC BUN (7-18) mg/dl BUN (7-18) mg/dl Creatinine (0.6-1.4) mg/dl POC Creatinine (0.6-1.3) mg/dl BUN/Creatinine Ratio (10-20) Glucose (70-99) mg/dl POC Glucose 451 H* 332 H 416 H* (70-99) POC Glucose (other) (70-99) mg/dl Hemoglobin A1c (4.5-5.6) % Osmolality (280-300) mOsm/kg POC Lactic Acid Luciano (0.90-1.70) mmol/L Calcium (8.5-10.1) mg/dl POC Ioniz Calcium Judith (1.12-1.32) mmol/l Phosphorus (2.5-4.9) mg/dl Magnesium (1.8-2.4) mg/dl AST (15-37) U/L Alkaline Phosphatase (45-117) U/L Beta-Hydroxybutyric Acd (0.2-2.81) mg/dl Urine Appearance (Clear) Urine Protein (Negative) Urine Glucose (UA) (Negative) Urine Ketones (Negative) Urine Blood (Negative) U Epithel Cells (Auto) (0-5) /lpf 11/25/18 11/25/18 11/25/18 Range/Units 04:19 04:19 04:46 WBC 16.89 H (4.8-10.8) K/uL RBC 4.20 L (4.7-6.1) M/uL Hgb 13.1 L (14.0-18.0) g/dL POC Hgb (14.0-18.0) g/dl Hct 36.4 L (42-52) % POC Hct (42-52) % MCHC (32-36) g/dL Plt Count (130-400) K/uL MPV (7.4-10.4) fL Immature Gran # (Auto) 0.06 H (0.00-0.02) K/uL Neut # (Auto) 12.98 H (1.4-6.5) K/uL [place] # (Auto) 1.79 H (0.11-0.59) K/uL POC pH (7.35-7.45) POC pCO2 (35-46) mmHg POC pO2 (80-95) mmHg POC HCO3 (19-24) obed/L POC Base Excess (-9-1.8) obed/L VBG pH (7.36-7.41) POC Sodium (135-144) mEq/L Sodium (136-145) mmol/L POC Potassium (3.3-5.0) mEq/L Potassium (3.5-5.1) mmol/L POC Chloride (101-112) mEq/L Chloride 118 H (98-107) mmol/L Carbon Dioxide 17 L (21-32) mmol/L POC Total CO2 (24-31) mEq/l Anion Gap (3-11) POC Anion Gap (16-25) mmol/L POC BUN (7-18) mg/dl BUN 20 H (7-18) mg/dl Creatinine (0.6-1.4) mg/dl POC Creatinine (0.6-1.3) mg/dl BUN/Creatinine Ratio (10-20) Glucose 383 H* (70-99) mg/dl POC Glucose 414 H* (70-99) POC Glucose (other) (70-99) mg/dl Hemoglobin A1c (4.5-5.6) % Osmolality (280-300) mOsm/kg POC Lactic Acid Luciano (0.90-1.70) mmol/L Calcium 7.9 L (8.5-10.1) mg/dl POC Ioniz Calcium Judith (1.12-1.32) mmol/l Phosphorus 2.4 L (2.5-4.9) mg/dl Magnesium (1.8-2.4) mg/dl AST (15-37) U/L Alkaline Phosphatase (45-117) U/L Beta-Hydroxybutyric Acd 58.51 H (0.2-2.81) mg/dl Urine Appearance (Clear) Urine Protein (Negative) Urine Glucose (UA) (Negative) Urine Ketones (Negative) Urine Blood (Negative) U Epithel Cells (Auto) (0-5) /lpf 11/25/18 11/25/18 11/25/18 Range/Units 05:45 06:43 07:49 WBC (4.8-10.8) K/uL RBC (4.7-6.1) M/uL Hgb (14.0-18.0) g/dL POC Hgb (14.0-18.0) g/dl Hct (42-52) % POC Hct (42-52) % MCHC (32-36) g/dL Plt Count (130-400) K/uL MPV (7.4-10.4) fL Immature Gran # (Auto) (0.00-0.02) K/uL Neut # (Auto) (1.4-6.5) K/uL [place] # (Auto) (0.11-0.59) K/uL POC pH (7.35-7.45) POC pCO2 (35-46) mmHg POC pO2 (80-95) mmHg POC HCO3 (19-24) obed/L POC Base Excess (-9-1.8) obed/L VBG pH (7.36-7.41) POC Sodium (135-144) mEq/L Sodium (136-145) mmol/L POC Potassium (3.3-5.0) mEq/L Potassium (3.5-5.1) mmol/L POC Chloride (101-112) mEq/L Chloride (98-107) mmol/L Carbon Dioxide (21-32) mmol/L POC Total CO2 (24-31) mEq/l Anion Gap (3-11) POC Anion Gap (16-25) mmol/L POC BUN (7-18) mg/dl BUN (7-18) mg/dl Creatinine (0.6-1.4) mg/dl POC Creatinine (0.6-1.3) mg/dl BUN/Creatinine Ratio (10-20) Glucose (70-99) mg/dl POC Glucose 375 H* 411 H* 404 H* (70-99) POC Glucose (other) (70-99) mg/dl Hemoglobin A1c (4.5-5.6) % Osmolality (280-300) mOsm/kg POC Lactic Acid Luciano (0.90-1.70) mmol/L Calcium (8.5-10.1) mg/dl POC Ioniz Calcium Judith (1.12-1.32) mmol/l Phosphorus (2.5-4.9) mg/dl Magnesium (1.8-2.4) mg/dl AST (15-37) U/L Alkaline Phosphatase (45-117) U/L Beta-Hydroxybutyric Acd (0.2-2.81) mg/dl Urine Appearance (Clear) Urine Protein (Negative) Urine Glucose (UA) (Negative) Urine Ketones (Negative) Urine Blood (Negative) U Epithel Cells (Auto) (0-5) /lpf 11/25/18 11/25/18 11/25/18 Range/Units 08:28 08:28 09:01 WBC (4.8-10.8) K/uL RBC (4.7-6.1) M/uL Hgb (14.0-18.0) g/dL POC Hgb (14.0-18.0) g/dl Hct (42-52) % POC Hct (42-52) % MCHC (32-36) g/dL Plt Count (130-400) K/uL MPV (7.4-10.4) fL Immature Gran # (Auto) (0.00-0.02) K/uL Neut # (Auto) (1.4-6.5) K/uL [place] # (Auto) (0.11-0.59) K/uL POC pH (7.35-7.45) POC pCO2 (35-46) mmHg POC pO2 (80-95) mmHg POC HCO3 (19-24) obed/L POC Base Excess (-9-1.8) obed/L VBG pH 7.29 L (7.36-7.41) POC Sodium (135-144) mEq/L Sodium (136-145) mmol/L POC Potassium (3.3-5.0) mEq/L Potassium (3.5-5.1) mmol/L POC Chloride (101-112) mEq/L Chloride 114 H (98-107) mmol/L Carbon Dioxide 20 L (21-32) mmol/L POC Total CO2 (24-31) mEq/l Anion Gap (3-11) POC Anion Gap (16-25) mmol/L POC BUN (7-18) mg/dl BUN (7-18) mg/dl Creatinine (0.6-1.4) mg/dl POC Creatinine (0.6-1.3) mg/dl BUN/Creatinine Ratio (10-20) Glucose 343 H (70-99) mg/dl POC Glucose 331 H (70-99) POC Glucose (other) (70-99) mg/dl Hemoglobin A1c (4.5-5.6) % Osmolality (280-300) mOsm/kg POC Lactic Acid Luciano (0.90-1.70) mmol/L Calcium (8.5-10.1) mg/dl POC Ioniz Calcium Judith (1.12-1.32) mmol/l Phosphorus 2.1 L (2.5-4.9) mg/dl Magnesium (1.8-2.4) mg/dl AST (15-37) U/L Alkaline Phosphatase (45-117) U/L Beta-Hydroxybutyric Acd 36.59 H (0.2-2.81) mg/dl Urine Appearance (Clear) Urine Protein (Negative) Urine Glucose (UA) (Negative) Urine Ketones (Negative) Urine Blood (Negative) U Epithel Cells (Auto) (0-5) /lpf Medications Administered Current Inpatient Medications Dextrose (Dextrose 50%) 25 - 50 ml IV UD PRN; Protocol PRN Reason: Hypoglycemia Protocol Stop: 12/24/18 14:00 Glucagon (Glucagen) 1 mg IM UD PRN; Protocol PRN Reason: Hypoglycemia Protocol Stop: 12/24/18 14:00 Glucose (Glucose 40%) 15 - 30 gm PO UD PRN; Protocol PRN Reason: Hypoglycemia Protocol Stop: 12/24/18 14:00 Glucose (Dex4 Glucose) 4 - 8 tabs PO UD PRN; Protocol PRN Reason: Hypoglycemia Protocol Stop: 12/24/18 14:00 Insulin Human Regular 250 (units/ Sodium Chloride) 250 mls @ 1.4 mls/hr IV .Q24H YAJAIRA; Protocol Stop: 12/24/18 13:59 Last Titration: 11/25/18 08:09 Dose: 1.4 units/hr, 1.4 mls/hr Potassium Chloride/Dextrose/Sod Cl (D5w And 1/2nss + 20meq Kcl) 20 meq in 1, 000 mls @ 150 mls/hr IV .Q6H40M [id number] Stop: 12/24/18 20:44 Last Admin: 11/25/18 09:09 Dose: 150 mls/hr Insulin Aspart (Novolog Flexpen) 0 units SC [facility] Stop: 12/24/18 17:59 Last Admin: 11/24/18 21:41 Dose: Not Given Miscellaneous (Carbohydrates For Hypoglycemia) 15 - 30 gm PO PRN PRN PRN Reason: Hypoglycemia Treatment Stop: 12/24/18 14:00 Miscellaneous Information (Consult Glycemic Management Pharmacy) 1 ea N/A UD PRN PRN Reason: Consult Stop: 12/24/18 16:38 Resident Activity Tracking Resident Involvement: Resident Care Provided Care Provided: [facility] Medicine _ (1) DKA (diabetic ketoacidoses) Diabetes mellitus complication detail: Diabetes mellitus type: (2) Altered mental status Altered mental status type: unspecified Coma depth: Coma timing: Qualified Code(s): R41.82 - Altered mental status, unspecified
[2018-11-25 09:00] LABS: BUN Creatinine Ratio 12.9 (10-20); Calcium 8.5 mg/dl (8.5-10.1); Est GFR (African American) 83.4; Est GFR (Non-African American) 71.9; Magnesium 2.4 mg/dl (1.8-2.4); Phosphorus 2.1 mg/dl (2.5-4.9)
[2018-11-25] MEDS ORDERED: INSULIN GLARGINE SOLOSTAR 100 UNITS/ML 3 ML PEN SC ONE ×2 (09:15→21:00)
[2018-11-25] MEDS: INSULIN ASPART 100 UNITS/ML 3 ML PEN SC SCH ×4 (09:42→20:53)
[2018-11-25] MEDS: SODIUM CHLOR 0.45% + 20MEQ KCL 20 MEQ/1,000 ML BAG IV SCH ×2 (11:56→18:25)
[2018-11-25] MEDS ORDERED: Nursing to Pharmacy Communication ONE (12:16)
[2018-11-25 14:29] LABS: BUN Creatinine Ratio 10.6 (10-20); Calcium 7.9 mg/dl (8.5-10.1); Creatinine Clr Calc Pharmacy 86.7 ml/min; Est GFR (African American) 102.7; Est GFR (Non-African American) 88.6; Potassium 3.4 mmol/L (3.5-5.1)
--- NOTE | 2018-11-25 14:37 | Pharmacy Report ---
Glycemic Control Consultation - Date of Service November 25, 2018 - Scope Scope: Glycemic Pharmacist consulted by Curtis BELTRAN on 11/25 for glycemic control and to write orders per [facility] inpatient glycemic control protocol - Objective Weight: 61.4 kg Accuchecks BSG (last 24hrs): 11/24/18 11/24/18 11/24/18 14:50 16:49 18:40 Glucose 948 H* 585 H* POC Glucose 486 H* 11/24/18 11/24/18 11/24/18 19:21 20:28 20:29 Glucose 352 H* POC Glucose 429 H* 339 H 11/24/18 11/24/18 11/24/18 21:33 22:36 23:36 Glucose POC Glucose 355 H* 451 H* 390 H* 11/25/18 11/25/18 11/25/18 00:23 00:29 01:32 Glucose 385 H* POC Glucose 371 H* 451 H* 11/25/18 11/25/18 11/25/18 02:42 03:45 04:19 Glucose 383 H* POC Glucose 332 H 416 H* 11/25/18 11/25/18 11/25/18 04:46 05:45 06:43 Glucose POC Glucose 414 H* 375 H* 411 H* 11/25/18 11/25/18 11/25/18 07:49 08:28 09:01 Glucose 343 H POC Glucose 404 H* 331 H 11/25/18 11/25/18 11/25/18 09:46 10:52 11:51 Glucose POC Glucose 374 H* 378 H* 281 H 11/25/18 11/25/18 12:54 13:57 Glucose POC Glucose 260 H 285 H Laboratory Data (last 24hrs): 11/24/18 11/24/18 11/24/18 13:35 14:50 16:49 Potassium Carbon Dioxide Anion Gap Creatinine Est Cr Clr Drug Dosing Osmolality 358 H* Beta-Hydroxybutyric Acd TNP 11/24/18 11/24/18 11/25/18 16:49 20:29 00:29 Potassium 4.4 D 4.7 4.7 Carbon Dioxide 8 L* 9 L* 14 L Anion Gap 25.0 H 21.0 H 12.0 H Creatinine 2.40 H D 1.78 H D 1.61 H Est Cr Clr Drug Dosing 40.8 55.0 60.8 Osmolality Beta-Hydroxybutyric Acd 112.33 H 106.53 H 60.74 H 11/25/18 11/25/18 04:19 08:28 Potassium 4.1 4.0 Carbon Dioxide 17 L 20 L Anion Gap 9.0 11.0 Creatinine 1.33 1.39 Est Cr Clr Drug Dosing 73.6 73.0 Osmolality Beta-Hydroxybutyric Acd 58.51 H 36.59 H HbA1c: Hemoglobin A1c 12.4 % (4.5-5.6) H 11/24/18 16:49 - Recent Pertinent Medications Outpatient Anti-diabetic Regimen: * No previous history * A1c = 12.4 % 11/24 The patient is currently receiving: * Insulin infusion @ 2.6 units/hr - Assessment & Plan Assessment & Plan: ASSESSMENT: * 23 yo male patient presented to ED via EMS after being found unresponsive, BSG on admission 1275, bicarb 7, anion gap 38, ph 7.02 * Per reports patient with recent history of weight loss, vomiting * Patient started on insulin infusion in ED with goal 250-350 given severity of hyperglycemia * BSGs in the 300s this AM, on insulin infusion, dextrose containing IVF, NPO * Diet ordered, dextrose removed from fluids, insulin infusion goal range decreased * Gap has closed, pH 7.29, bicarb 17, new labs pending * IF drip able to be transitioned off would add correction factor 30/carb ratio 12 PLAN FOR INPATIENT GLYCEMIC CONTROL: * IV insulin infusion * Goal Range 110-180 mg/dl * Novolog ordered with set carb ratio of 12 with meals * Basal insulin * Lantus 10 units x 1 this AM * Lantus scale this evening to continue * hold if BSG <100 mg/dL, 6 units for bsg 110-200, 10 units bsg >200 * Please note that the plan above was derived based on current level of insulin resistance and hospital stress. These recommendations are appropriate for inpatient admission only. Plan of care upon discharge will need to be reassessed to avoid potential outpatient hypo/hyperglycemia. Thank you.
--- NOTE | 2018-11-25 17:01 | Family Medicine Progress Note ---
Date of Service November 25, 2018 Assessment & Plan (1) DKA (diabetic ketoacidoses): 23-year-old male with no past medical history presented with altered mental status, weight loss and persistent nausea and vomiting for the past 3 days. He was found to be in DKA. Diabetic ketoacidosis �Treated in ICU per DKA protocol �Was transferred to the floor following closed anion gap New onset diabetes, type 1 diabetes �Glycemic consult �Diabetic education provided �Transitioning from insulin drip to subcu insulin �Continue to monitor electrolytes and BMP Leukocytosis �Blood and urine cultures pending �Likely secondary to demargination FEN; continuing fluids normal saline with potassium at 150 cc/h, diabetic diet DVT prophylaxis; low risk, ambulate Dispo; transfer to regular medical floor from ICU--continue hydration, continue insulin, continue diabetic education (2) Electrolyte abnormality: (3) Metabolic acidosis: (4) Hyperglycemia: (5) Hyperkalemia: (6) Altered mental status: Supervising Physician Co-Signing Physician Notes Resident Physician Supervision Note: I independently interviewed and examined the patient and verified the cox history and physical, reviewed labs and image studies, discussed the case with the resident Dr. Bowles and agree with the findings and care plan. Subjective 23-year-old male with no past medical history presented with altered mental status, weight loss and persistent nausea and vomiting for the past 3 days. He was found to be in DKA. Patient reports feeling much better this morning. He states that he is currently trying to process the whole ordeal. All questions were addressed today. Review of systems Constitutional; no fevers, chills, night sweats Cardio; no chest pain, no palpitations, no lower extremity swelling Respiratory; no cough, no respiratory distress, no shortness of breath GI; denies abdominal pain, no nausea no vomiting at the moment Physical Exam 2 Vital Signs (Past 24 Hours): Last Vital Signs Temp 36.8 C 11/25/18 15:50 Pulse 67 11/25/18 15:50 Resp 16 11/25/18 15:50 BP 111/64 11/25/18 15:50 Pulse Ox 97 11/25/18 15:50 Constitutional: WD/WN, vitals as above Eyes: PERRL, conjunctivae normal, anicteric sclerae ENMT: external ear and nose normal, oropharynx normal Neck: trachea midline, no thyromegaly Respiratory: normal respiratory effort, lungs clear to auscultation Cardiovascular: RRR, no murmur, no edema Gastrointestinal (Abdomen): normal bowel sounds, soft, nontender, no hepatosplenomegaly Musculoskeletal: no cyanosis or clubbing, extremities motor strength 5/5 Skin: no rashes, warm and dry Psychiatric: A+Ox3, euthymic affect Lymphatic: no cervical lymphadenopathy Results & Data Laboratory Results Laboratory Last Values WBC 16.89 K/uL (4.8-10.8) H 11/25/18 04:19 RBC 4.20 M/uL (4.7-6.1) L 11/25/18 04:19 Hgb 13.1 g/dL (14.0-18.0) L 11/25/18 04:19 POC Hgb 11.9 g/dl (14.0-18.0) L 11/24/18 14:09 Hct 36.4 % (42-52) L 11/25/18 04:19 POC Hct 35 % (42-52) L 11/24/18 14:09 MCV 86.7 fL (80-100) 11/25/18 04:19 MCH 31.2 pg (25-34) 11/25/18 04:19 MCHC 36.0 g/dL (32-36) 11/25/18 04:19 RDW Std Deviation 40.3 fL (36.4-46.3) 11/25/18 04:19 RDW Coeff of Марина 12.8 % (11.5-14.5) 11/25/18 04:19 Plt Count 256 K/uL (130-400) 11/25/18 04:19 MPV 10.4 fL (7.4-10.4) 11/25/18 04:19 Immature Gran % (Auto) 0.4 % 11/25/18 04:19 Neut % (Auto) 76.8 % 11/25/18 04:19 Lymph % (Auto) 12.1 % 11/25/18 04:19 [place] % (Auto) 10.6 % 11/25/18 04:19 Eos % (Auto) 0.0 % 11/25/18 04:19 Baso % (Auto) 0.1 % 11/25/18 04:19 Immature Gran # (Auto) 0.06 K/uL (0.00-0.02) H 11/25/18 04:19 Neut # (Auto) 12.98 K/uL (1.4-6.5) H 11/25/18 04:19 Lymph # (Auto) 2.04 K/uL (1.2-3.4) 11/25/18 04:19 [place] # (Auto) 1.79 K/uL (0.11-0.59) H 11/25/18 04:19 Eos # (Auto) 0.00 K/uL (0-0.5) 11/25/18 04:19 Baso # (Auto) 0.02 K/uL (0-0.2) 11/25/18 04:19 Spherocytes 1+ 11/24/18 13:35 Echinocytes 1+ 11/24/18 13:35 PT 11.4 Seconds (9.0-12.0) 11/24/18 13:35 INR 1.1 (0.9-1.1) 11/24/18 13:35 APTT 25.7 Seconds (21.0-31.0) 11/24/18 13:35 PTT Ratio 1.0 11/24/18 13:35 POC pH 7.02 (7.35-7.45) L* 11/24/18 14:09 POC pCO2 10 mmHg (35-46) L 11/24/18 14:09 POC pO2 139 mmHg (80-95) H 11/24/18 14:09 POC HCO3 3 obed/L (19-24) L 11/24/18 14:09 POC Total CO2 < 5 mEq/l (24-31) L* 11/24/18 14:09 POC Base Excess -28.0 obed/L (-9-1.8) L 11/24/18 14:09 VBG pH 7.29 (7.36-7.41) L 11/25/18 08:28 POC Sodium 132 mEq/L (135-144) L 11/24/18 14:09 Sodium 139 mmol/L (136-145) 11/25/18 13:54 POC Potassium 5.5 mEq/L (3.3-5.0) H 11/24/18 14:09 Potassium 3.4 mmol/L (3.5-5.1) L 11/25/18 13:54 POC Chloride 96 mEq/L (101-112) L 11/24/18 13:42 Chloride 110 mmol/L (98-107) H 11/25/18 13:54 Carbon Dioxide 20 mmol/L (21-32) L 11/25/18 13:54 POC Total CO2 8 mEq/l (24-31) L* 11/24/18 13:42 Anion Gap 10.0 (3-11) 11/25/18 13:54 POC Anion Gap 33.0 mmol/L (16-25) H 11/24/18 13:42 POC BUN 46 mg/dl (7-18) H 11/24/18 13:42 BUN 12 mg/dl (7-18) 11/25/18 13:54 Creatinine 1.17 mg/dl (0.6-1.4) 11/25/18 13:54 POC Creatinine 3.2 mg/dl (0.6-1.3) H 11/24/18 13:42 Est Cr Clr Drug Dosing 86.7 ml/min 11/25/18 13:54 Est GFR ( Amer) 102.7 11/25/18 13:54 Est GFR (Non-Af Amer) 88.6 11/25/18 13:54 BUN/Creatinine Ratio 10.6 (10-20) 11/25/18 13:54 Glucose 297 mg/dl (70-99) H 11/25/18 13:54 POC Glucose 231 (70-99) H 11/25/18 14:48 POC Glucose (other) > 700 mg/dl (70-99) H* 11/24/18 13:42 Estimat Average Glucose 309 mg/dl 11/24/18 16:49 Hemoglobin A1c 12.4 % (4.5-5.6) H 11/24/18 16:49 Osmolality 358 mOsm/kg (280-300) H* 11/24/18 16:49 POC Lactic Acid Luciano 6.21 mmol/L (0.90-1.70) H 11/24/18 13:50 Lactate 0.7 mmol/L (0.4-2.0) 11/25/18 04:19 Calcium 7.9 mg/dl (8.5-10.1) L 11/25/18 13:54 POC Ioniz Calcium Judith 1.06 mmol/l (1.12-1.32) L 11/24/18 13:42 Phosphorus 2.1 mg/dl (2.5-4.9) L 11/25/18 08:28 Magnesium 2.4 mg/dl (1.8-2.4) 11/25/18 08:28 Total Bilirubin 0.6 mg/dl (0.2-1) 11/24/18 16:49 AST 5 U/L (15-37) L 11/24/18 16:49 ALT 17 U/L (12-78) 11/24/18 16:49 Alkaline Phosphatase 101 U/L (45-117) 11/24/18 16:49 Troponin I < 0.015 ng/ml (0-0.045) 11/24/18 13:35 Total Protein 6.7 gm/dl (6.4-8.2) 11/24/18 16:49 Albumin 3.8 gm/dl (3.4-5.0) 11/24/18 16:49 Globulin 2.9 gm/dl (2.5-4.0) 11/24/18 16:49 Albumin/Globulin Ratio 1.3 (0.9-2) 11/24/18 16:49 Beta-Hydroxybutyric Acd 36.59 mg/dl (0.2-2.81) H 11/25/18 08:28 TSH 0.679 uIu/ml (0.300-4.500) 11/24/18 13:35 Urine Color Yellow 11/24/18 14:08 Urine Appearance Cloudy (Clear) H 11/24/18 14:08 Urine pH 5.0 (4.5-7.5) 11/24/18 14:08 Ur Specific [place] 1.027 (1.000-1.030) 11/24/18 14:08 Urine Protein 2+ (Negative) H 11/24/18 14:08 Urine Glucose (UA) 3+ (Negative) H 11/24/18 14:08 Urine Ketones 2+ (Negative) H 11/24/18 14:08 Urine Blood Trace (Negative) H 11/24/18 14:08 Urine Nitrite Negative (Negative) 11/24/18 14:08 Urine Bilirubin Negative (Negative) 11/24/18 14:08 Urine Urobilinogen Negative (Negative) 11/24/18 14:08 Ur Leukocyte Esterase Negative (Negative) 11/24/18 14:08 Urine WBC (Auto) 1-5 /hpf (0-5) 11/24/18 14:08 Urine RBC (Auto) 0-4 /hpf (0-4) 11/24/18 14:08 U Hyaline Cast (Auto) 1-5 /lpf (0-5) 11/24/18 14:08 U Epithel Cells (Auto) 10-20 /lpf (0-5) H 11/24/18 14:08 Urine Bacteria (Auto) Negative (Negative) 11/24/18 14:08 Nasal Screen MRSA (PCR) Negative (Negative) 11/24/18 Unknown Urine Opiates Screen Neg (Neg) 11/24/18 14:08 Ur Methadone, Qual Neg (Neg) 11/24/18 14:08 Urine Barbiturates Neg (Neg) 11/24/18 14:08 Ur Phencyclidine (PCP) Neg (Neg) 11/24/18 14:08 U Amphetamin/Meth Scrn Neg (Neg) 11/24/18 14:08 MDMA (Ecstasy) Screen Neg (Neg) 11/24/18 14:08 U Benzodiazepines Scrn Neg (Neg) 11/24/18 14:08 Ur Cocaine Metabolite Neg (Neg) 11/24/18 14:08 U Marijuana (THC) Screen Neg (Neg) 11/24/18 14:08 Ethyl Alcohol mg/dL < 3.0 mg/dl (0-3) 11/24/18 13:49 Resident Activity Tracking Resident Involvement: Resident Care Provided Care Provided: Adult [facility] Medicine _ (1) DKA (diabetic ketoacidoses) Diabetes mellitus complication detail: Diabetes mellitus type: (2) Altered mental status Altered mental status type: unspecified Coma depth: Coma timing: Qualified Code(s): R41.82 - Altered mental status, unspecified
[2018-11-25 22:33] LABS: BUN Creatinine Ratio 12.4 (10-20); Calcium 7.8 mg/dl (8.5-10.1); Est GFR (African American) 133.8; Est GFR (Non-African American) 115.4
[2018-11-26] MEDS: SODIUM CHLOR 0.45% + 20MEQ KCL 20 MEQ/1,000 ML BAG IV SCH ×3 (01:13→19:26)
[2018-11-26 07:49] LABS: Hematocrit (blood only) 27.7 % (42-52); Mean Corpuscular Hgb Conc 36.1 g/dL (32-36); Mean Corpuscular Volume 85.8 fL (80-100); Mean Platelet Volume 10.2 fL (7.4-10.4); Platelet Count 132 K/uL (130-400); RDW Coefficient of Variation 12.9 % (11.5-14.5); Red Blood Count 3.23 M/uL (4.7-6.1); White Blood Count 7.87 K/uL (4.8-10.8)
[2018-11-26 08:01] LABS: Basophils # (auto) 0.04 K/uL (0-0.2); Basophils % (auto) 0.5 %; Eosinophils # (auto) 0.12 K/uL (0-0.5); Eosinophils % (auto) 1.5 %; Immature Granulocytes # (auto) 0.01 K/uL (0.00-0.02); Immature Granulocytes % (auto) 0.1 %; Lymphocytes # (auto) 4.03 K/uL (1.2-3.4); Lymphocytes % (auto) 51.2 %; Monocytes % (auto) 7.6 %; Neutrophils # (auto) 3.07 K/uL (1.4-6.5); Neutrophils % (auto) 39.1 %
[2018-11-26 08:10] LABS: BUN Creatinine Ratio 14.2 (10-20); Blood Urea Nitrogen 10 mg/dl (7-18); Calcium 7.1 mg/dl (8.5-10.1); Carbon Dioxide 24 mmol/L (21-32); Chloride 111 mmol/L (98-107); Creatinine Clr Calc Pharmacy 151.5 ml/min; Est GFR (African American) > 150.0; Est GFR (Non-African American) 137.4; Glucose 110 mg/dl (70-99); Magnesium 1.7 mg/dl (1.8-2.4); Phosphorus 2.1 mg/dl (2.5-4.9); Potassium 3.9 mmol/L (3.5-5.1); Sodium 141 mmol/L (136-145)
[2018-11-26] MEDS ORDERED: INSULIN GLARGINE SOLOSTAR 100 UNITS/ML 3 ML PEN SC ONE (09:00)
[2018-11-26] MEDS: INSULIN ASPART 100 UNITS/ML 3 ML PEN SC SCH ×5 (09:03→21:35)
--- NOTE | 2018-11-26 15:20 | Pharmacy Report ---
Pharmacy Glycemic Short Note 2 - Date of Service November 26, 2018 - Glycemic Short BSG Results (Last 24 hours): 11/25/18 11/25/18 11/25/18 15:46 17:26 18:32 Glucose POC Glucose 168 H 159 H 251 H 11/25/18 11/25/18 11/25/18 19:33 20:31 21:58 Glucose 150 H POC Glucose 198 H 138 H 11/25/18 11/25/18 11/26/18 22:03 23:11 00:05 Glucose POC Glucose 151 H 134 H 131 H 11/26/18 11/26/18 11/26/18 01:06 02:00 02:38 Glucose POC Glucose 113 H 83 165 H 11/26/18 11/26/18 11/26/18 03:47 04:46 05:48 Glucose POC Glucose 145 H 129 H 122 H 11/26/18 11/26/18 11/26/18 07:04 07:57 11:13 Glucose 110 H POC Glucose 113 H 289 H 11/26/18 12:05 Glucose POC Glucose 257 H OUTPATIENT ANTIDIABETIC REGIMEN: * No previous history * A1c = 12.4 % 11/24 ASSESSMENT: * 23 yr old newly diagnosed diabetic * Patient presented in DKA and was started on IV insulin infusion per protocol. Insulin drip rate was titrated down to 0.7 units/hr overnight. * Anion gap and bicarb were within normal limits on AM labs and all BSGs less than 200 mg/dL since 193 on 11/25, therefore IV infusion was discontinued. * Will continue to titrate basal and bolus insulin * Fasting BSG of 113 mg/dL was at goal. Will attempt to transition to once daily dosing (pt prefers evening administration) * Post prandial elevation noted with lunch PLAN FOR INPATIENT GLYCEMIC CONTROL: * Basal insulin * Lantus 6 units SQ given this morning, then Lantus per scale tonight: * 0 units for BSG < 110 mg/dL * 6 units for BSG 110-180 mg/dL * 10 units for BSG > 180 mg/dL * Bolus insulin * NovoLog per scale ACHS or Q6hrs while NPO * Goal Range: Low 120 mg/dL - High 160 mg/dL * Correction Factor: 30 mg/dL/unit * Nutritional / Prandial insulin per carb ratio of 1 unit per 10 grams CHO consumed PLAN FOR DISCHARGE: * New diagnosis, A1c 12.4% * Patient is agreeable to discharge on once daily Lantus plus Novolog per correction factor and carb ratio * If discharged on 11/26/18, I recommend the following doses: * Lantus 12 units SQ qHS (he received 6 units this morning so tonight he would only require an additional 6 units) * Novolog with correction factor of 40 mg/dL/unit and carb ratio of 1 unit for every 12 grams CHO * Of note, these doses are conservative since we have limited BSG data off insulin drip
--- NOTE | 2018-11-26 15:47 | Family Medicine Progress Note ---
Date of Service November 26, 2018 Assessment & Plan (1) Type 1 diabetes: (1) DKA (diabetic ketoacidoses): 23-year-old male with no past medical history presented with altered mental status, weight loss and persistent nausea and vomiting for the past 3 days. He was found to be in DKA. Diabetic ketoacidosis �Treated per DKA protocol in ICU �Was transferred to the floor following closed anion gap New onset diabetes, type 1 diabetes �Diabetic education provided �Transitioned to subcu insulin �Continue to monitor electrolytes and BMP �Plan to discharge on Lantus 12 units nightly, NovoLog correction factor 40, BSG greater than 150, carb ratio 1 unit per 12 g of carbs. Scripts included for discharge �Will include paper scripts for pen needles, glucometer, test strips, lancets �will follow up with me in the clinic on November 30 Leukocytosis �Blood and urine cultures no growth to date �Likely secondary to demargination FEN; DC fluids today, diabetic diet Disposition; continue to hospital care and diabetic education. Plan to discharge tomorrow morning. Scripts are in the chart. (2) Leukocytosis: (3) DKA (diabetic ketoacidoses): (4) Metabolic acidosis: (5) Hyperglycemia: (6) Hyperkalemia: (7) Altered mental status: Supervising Physician Co-Signing Physician Notes Resident Physician Supervision Note: I independently interviewed and examined the patient and verified the cox history and physical, reviewed labs and image studies, discussed the case with the resident Dr. Bowles and agree with the findings and care plan. Subjective Doing well this morning. No acute complaints. Tolerating breakfast. Constitutional: no fever, no chills and no sweats Respiratory: no cough, no chest congestion and no dyspnea Cardiovascular: no chest pain, no dyspnea and no palpitations Gastrointestinal: no abdominal pain, no nausea and no vomiting Genitourinary (Male): no dysuria Musculoskeletal: no back pain Physical Exam 2 Vital Signs (Past 24 Hours): Last Vital Signs Temp 36.9 C 11/26/18 15:20 Pulse 73 11/26/18 15:20 Resp 16 11/26/18 15:20 BP 108/67 11/26/18 15:20 Pulse Ox 97 11/26/18 15:20 Constitutional: WD/WN, vitals as above Eyes: PERRL, conjunctivae normal, anicteric sclerae ENMT: external ear and nose normal, oropharynx normal Neck: trachea midline, no thyromegaly Respiratory: normal respiratory effort, lungs clear to auscultation Cardiovascular: RRR, no murmur, no edema Gastrointestinal (Abdomen): normal bowel sounds, soft, nontender, no hepatosplenomegaly Skin: no rashes, warm and dry Results & Data Laboratory Results Laboratory Last Values WBC 7.87 K/uL (4.8-10.8) 11/26/18 07:04 RBC 3.23 M/uL (4.7-6.1) L 11/26/18 07:04 Hgb 10.0 g/dL (14.0-18.0) L D 11/26/18 07:04 POC Hgb 11.9 g/dl (14.0-18.0) L 11/24/18 14:09 Hct 27.7 % (42-52) L 11/26/18 07:04 POC Hct 35 % (42-52) L 11/24/18 14:09 MCV 85.8 fL (80-100) 11/26/18 07:04 MCH 31.0 pg (25-34) 11/26/18 07:04 MCHC 36.1 g/dL (32-36) H 11/26/18 07:04 RDW Std Deviation 40.0 fL (36.4-46.3) 11/26/18 07:04 RDW Coeff of Марина 12.9 % (11.5-14.5) 11/26/18 07:04 Plt Count 132 K/uL (130-400) 11/26/18 07:04 MPV 10.2 fL (7.4-10.4) 11/26/18 07:04 Immature Gran % (Auto) 0.1 % 11/26/18 07:04 Neut % (Auto) 39.1 % 11/26/18 07:04 Lymph % (Auto) 51.2 % 11/26/18 07:04 [place] % (Auto) 7.6 % 11/26/18 07:04 Eos % (Auto) 1.5 % 11/26/18 07:04 Baso % (Auto) 0.5 % 11/26/18 07:04 Immature Gran # (Auto) 0.01 K/uL (0.00-0.02) 11/26/18 07:04 Neut # (Auto) 3.07 K/uL (1.4-6.5) 11/26/18 07:04 Lymph # (Auto) 4.03 K/uL (1.2-3.4) H 11/26/18 07:04 [place] # (Auto) 0.60 K/uL (0.11-0.59) H 11/26/18 07:04 Eos # (Auto) 0.12 K/uL (0-0.5) 11/26/18 07:04 Baso # (Auto) 0.04 K/uL (0-0.2) 11/26/18 07:04 Spherocytes 1+ 11/24/18 13:35 Echinocytes 1+ 11/24/18 13:35 PT 11.4 Seconds (9.0-12.0) 11/24/18 13:35 INR 1.1 (0.9-1.1) 11/24/18 13:35 APTT 25.7 Seconds (21.0-31.0) 11/24/18 13:35 PTT Ratio 1.0 11/24/18 13:35 POC pH 7.02 (7.35-7.45) L* 11/24/18 14:09 POC pCO2 10 mmHg (35-46) L 11/24/18 14:09 POC pO2 139 mmHg (80-95) H 11/24/18 14:09 POC HCO3 3 obed/L (19-24) L 11/24/18 14:09 POC Total CO2 < 5 mEq/l (24-31) L* 11/24/18 14:09 POC Base Excess -28.0 obed/L (-9-1.8) L 11/24/18 14:09 VBG pH 7.29 (7.36-7.41) L 11/25/18 08:28 POC Sodium 132 mEq/L (135-144) L 11/24/18 14:09 Sodium 141 mmol/L (136-145) 11/26/18 07:04 POC Potassium 5.5 mEq/L (3.3-5.0) H 11/24/18 14:09 Potassium 3.9 mmol/L (3.5-5.1) D 11/26/18 07:04 POC Chloride 96 mEq/L (101-112) L 11/24/18 13:42 Chloride 111 mmol/L (98-107) H 11/26/18 07:04 Carbon Dioxide 24 mmol/L (21-32) 11/26/18 07:04 POC Total CO2 8 mEq/l (24-31) L* 11/24/18 13:42 Anion Gap 5.0 (3-11) 11/26/18 07:04 POC Anion Gap 33.0 mmol/L (16-25) H 11/24/18 13:42 POC BUN 46 mg/dl (7-18) H 11/24/18 13:42 BUN 10 mg/dl (7-18) 11/26/18 07:04 Creatinine 0.67 mg/dl (0.6-1.4) 11/26/18 07:04 POC Creatinine 3.2 mg/dl (0.6-1.3) H 11/24/18 13:42 Est Cr Clr Drug Dosing 151.5 ml/min 11/26/18 07:04 Est GFR ( Amer) > 150.0 11/26/18 07:04 Est GFR (Non-Af Amer) 137.4 11/26/18 07:04 BUN/Creatinine Ratio 14.2 (10-20) 11/26/18 07:04 Glucose 110 mg/dl (70-99) H 11/26/18 07:04 POC Glucose 257 (70-99) H 11/26/18 12:05 POC Glucose (other) > 700 mg/dl (70-99) H* 11/24/18 13:42 Estimat Average Glucose 309 mg/dl 11/24/18 16:49 Hemoglobin A1c 12.4 % (4.5-5.6) H 11/24/18 16:49 Osmolality 358 mOsm/kg (280-300) H* 11/24/18 16:49 POC Lactic Acid Luciano 6.21 mmol/L (0.90-1.70) H 11/24/18 13:50 Lactate 0.7 mmol/L (0.4-2.0) 11/25/18 04:19 Calcium 7.1 mg/dl (8.5-10.1) L 11/26/18 07:04 POC Ioniz Calcium Judith 1.06 mmol/l (1.12-1.32) L 11/24/18 13:42 Phosphorus 2.1 mg/dl (2.5-4.9) L 11/26/18 07:04 Magnesium 1.7 mg/dl (1.8-2.4) L 11/26/18 07:04 Total Bilirubin 0.6 mg/dl (0.2-1) 11/24/18 16:49 AST 5 U/L (15-37) L 11/24/18 16:49 ALT 17 U/L (12-78) 11/24/18 16:49 Alkaline Phosphatase 101 U/L (45-117) 11/24/18 16:49 Troponin I < 0.015 ng/ml (0-0.045) 11/24/18 13:35 Total Protein 6.7 gm/dl (6.4-8.2) 11/24/18 16:49 Albumin 3.8 gm/dl (3.4-5.0) 11/24/18 16:49 Globulin 2.9 gm/dl (2.5-4.0) 11/24/18 16:49 Albumin/Globulin Ratio 1.3 (0.9-2) 11/24/18 16:49 Beta-Hydroxybutyric Acd 36.59 mg/dl (0.2-2.81) H 11/25/18 08:28 TSH 0.679 uIu/ml (0.300-4.500) 11/24/18 13:35 Urine Color Yellow 11/24/18 14:08 Urine Appearance Cloudy (Clear) H 11/24/18 14:08 Urine pH 5.0 (4.5-7.5) 11/24/18 14:08 Ur Specific [place] 1.027 (1.000-1.030) 11/24/18 14:08 Urine Protein 2+ (Negative) H 11/24/18 14:08 Urine Glucose (UA) 3+ (Negative) H 11/24/18 14:08 Urine Ketones 2+ (Negative) H 11/24/18 14:08 Urine Blood Trace (Negative) H 11/24/18 14:08 Urine Nitrite Negative (Negative) 11/24/18 14:08 Urine Bilirubin Negative (Negative) 11/24/18 14:08 Urine Urobilinogen Negative (Negative) 11/24/18 14:08 Ur Leukocyte Esterase Negative (Negative) 11/24/18 14:08 Urine WBC (Auto) 1-5 /hpf (0-5) 11/24/18 14:08 Urine RBC (Auto) 0-4 /hpf (0-4) 11/24/18 14:08 U Hyaline Cast (Auto) 1-5 /lpf (0-5) 11/24/18 14:08 U Epithel Cells (Auto) 10-20 /lpf (0-5) H 11/24/18 14:08 Urine Bacteria (Auto) Negative (Negative) 11/24/18 14:08 Nasal Screen MRSA (PCR) Negative (Negative) 11/24/18 Unknown Urine Opiates Screen Neg (Neg) 11/24/18 14:08 Ur Methadone, Qual Neg (Neg) 11/24/18 14:08 Urine Barbiturates Neg (Neg) 11/24/18 14:08 Ur Phencyclidine (PCP) Neg (Neg) 11/24/18 14:08 U Amphetamin/Meth Scrn Neg (Neg) 11/24/18 14:08 MDMA (Ecstasy) Screen Neg (Neg) 11/24/18 14:08 U Benzodiazepines Scrn Neg (Neg) 11/24/18 14:08 Ur Cocaine Metabolite Neg (Neg) 11/24/18 14:08 U Marijuana (THC) Screen Neg (Neg) 11/24/18 14:08 Ethyl Alcohol mg/dL < 3.0 mg/dl (0-3) 11/24/18 13:49 Resident Activity Tracking Resident Involvement: Resident Care Provided Care Provided: Adult [facility] Medicine _ (1) DKA (diabetic ketoacidoses) Diabetes mellitus complication detail: Diabetes mellitus type: (2) Altered mental status Altered mental status type: unspecified Coma depth: Coma timing: Qualified Code(s): R41.82 - Altered mental status, unspecified
[2018-11-26] MEDS: INSULIN REGULAR 250 UNITS in SODIUM CHLORIDE 0.9% 247.5 ML IV SCH (19:27)
[2018-11-26] MEDS ORDERED: INSULIN GLARGINE SOLOSTAR 100 UNITS/ML 3 ML PEN SC SCH (21:00)
[2018-11-27] MEDS ORDERED: INSULIN ASPART 100 UNITS/ML 3 ML PEN SQ SCH
[2018-11-27 06:41] LABS: Hematocrit (blood only) 31.6 % (42-52); Hemoglobin 11.3 g/dL (14.0-18.0); Mean Corpuscular Hgb Conc 35.8 g/dL (32-36); Mean Corpuscular Volume 87.1 fL (80-100); Mean Platelet Volume 10.2 fL (7.4-10.4); Platelet Count 126 K/uL (130-400); RDW Coefficient of Variation 12.4 % (11.5-14.5); RDW Standard Deviation 39.5 fL (36.4-46.3); Red Blood Count 3.63 M/uL (4.7-6.1); White Blood Count 5.76 K/uL (4.8-10.8)
[2018-11-27 07:02] LABS: Basophils # (auto) 0.04 K/uL (0-0.2); Basophils % (auto) 0.7 %; Eosinophils % (auto) 1.7 %; Immature Granulocytes # (auto) 0.01 K/uL (0.00-0.02); Immature Granulocytes % (auto) 0.2 %; Lymphocytes # (auto) 2.98 K/uL (1.2-3.4); Lymphocytes % (auto) 51.7 %; Monocytes # (auto) 0.46 K/uL (0.11-0.59); Neutrophils # (auto) 2.17 K/uL (1.4-6.5); Neutrophils % (auto) 37.7 %
[2018-11-27 07:07] LABS: BUN Creatinine Ratio 16.7 (10-20); Blood Urea Nitrogen 11 mg/dl (7-18); Calcium 7.7 mg/dl (8.5-10.1); Carbon Dioxide 27 mmol/L (21-32); Chloride 111 mmol/L (98-107); Creatinine Clr Calc Pharmacy 151.5 ml/min; Est GFR (African American) > 150.0; Est GFR (Non-African American) 137.4; Glucose 167 mg/dl (70-99); Potassium 3.4 mmol/L (3.5-5.1); Sodium 142 mmol/L (136-145)
[2018-11-27] MEDS: INSULIN ASPART 100 UNITS/ML 3 ML PEN SC SCH ×2 (08:41→12:53)
--- NOTE | 2018-11-27 10:17 | Pharmacy Report ---
Pharmacy Glycemic Short Note 2 - Date of Service November 27, 2018 - Glycemic Short BSG Results (Last 24 hours): 11/26/18 11/26/18 11/26/18 11:13 12:05 16:39 Glucose POC Glucose 289 H 257 H 262 H 11/26/18 11/27/18 11/27/18 20:09 00:55 04:33 Glucose POC Glucose 257 H 109 H 120 H 11/27/18 11/27/18 06:28 07:48 Glucose 167 H POC Glucose 184 H OUTPATIENT ANTIDIABETIC REGIMEN: * No previous history * A1c = 12.4 % 11/24 ASSESSMENT: 11/27: * Rufino received 44 units of insulin yesterday. * Fasting BSG of 120 mg/dL is at goal. Will transition Lantus to once daily dosing. * Post prandial elevation continued despite tightening carb ratio yesterday. I will slightly tighten again today. It is possible that BSG increase throughout the day was due to lack of basal insulin since he received reduced dose of 6 units on 11/25 HS and 11/26 AM. 11/26: * 23 yr old newly diagnosed diabetic * Patient presented in DKA and was started on IV insulin infusion per protocol. Insulin drip rate was titrated down to 0.7 units/hr overnight. * Anion gap and bicarb were within normal limits on AM labs and all BSGs less than 200 mg/dL since 193 on 11/25, therefore IV infusion was discontinued. * Will continue to titrate basal and bolus insulin * Fasting BSG of 113 mg/dL was at goal. Will attempt to transition to once daily dosing (pt prefers evening administration) * Post prandial elevation noted with lunch PLAN FOR INPATIENT GLYCEMIC CONTROL: * Basal insulin * Lantus 16 units SQ daily - starting at lunchtime today, then transition to HS dosing: * Lantus 16 units SQ with dinner on 11/28 * Lantus 16 units SQ qHS starting on 11/29 * Bolus insulin - tighten carb ratio * NovoLog per scale ACHS or Q6hrs while NPO * Goal Range: Low 120 mg/dL - High 160 mg/dL * Correction Factor: 30 mg/dL/unit * Nutritional / Prandial insulin per carb ratio of 1 unit per 8 grams CHO consumed PLAN FOR DISCHARGE (updated 11/27): * New diagnosis, A1c 12.4% * Patient is agreeable to discharge on once daily Lantus plus Novolog per correction factor and carb ratio * If discharged on 11/26/18, I recommend the following doses: * Lantus 16 units SQ HS (instruct patient to give at dinnertime on 11/28, then start HS administration on 11/29) * Novolog with correction factor of 40 mg/dL/unit and carb ratio of 1 unit for every 10 grams CHO (CDE prepared dosing sheet for patient) Thank you
[2018-11-27] MEDS ORDERED: INSULIN GLARGINE SOLOSTAR 100 UNITS/ML 3 ML PEN SC ONE (12:00)
--- NOTE | 2018-11-27 20:19 | Discharge Summary ---
Date of Service November 27, 2018 Admission HPI Per Admitting Provider 23 y/o M who was brought to the ED by his roommate after being found unresponsive. Pt has been feeling unwell for the last 3 days. He has had n/v and abd cramping. He has had almost no appetite, but what he tries to eat he cannot keep down at all. He went to the gym with his roommate last week and noted that he had lost about 30 lbs in the last month. Pt states he remembers waking up this AM and feeling unwell, so he called [facility] to make an urgent appt. He remembers waiting about an hour for them to call back and then has no further memory until waking up in the ED this afternoon. Roommate is present and states he found pt unresponsive in his room. Does note that pt has been quite sick with n/v as noted above. Pt denies fever, chest pain, c/d, LE pain or swelling. Pt states he has been SOB the last few days. He has had a hard time thinking. Pt states he feels much improved. Still feels his thinking is cloudy. Still SOB. Mild nausea but no recent emesis. Pt states he has no medical hx. He does note that he had something similar happen 2 yrs ago, but not as severe. He states he lost about 10 lbs and was having n/v. He was seen at [facility] and given two medications. One he believes was an abx for an ear infection, but he does not know what the other was. He took these medications for about a week and his sx resolved. Admission Exam Per Admitting Provider Last Vital Signs Temp 35.9 C L 11/24/18 13:34 Pulse 154 H 11/24/18 15:20 Resp 32 H 11/24/18 15:20 BP 119/78 11/24/18 15:20 Pulse Ox 100 11/24/18 15:20 Constitutional: WD/WN, vitals as above Eyes: normal visual rae by confrontation and + anicteric sclerae Neck: normal visual inspection and trachea midline Respiratory: + respiratory distress (mild, able to talk but with slightly increased work of breathing between sentences) and + labored breathing Auscultation: no crackles and no wheezes Cardiovascular: Rate/Rhythm: regular rate and regular rhythm Gastrointestinal (Abdomen): Inspection/Auscultation: abdomen not distended Percussion/Palpation: abdomen soft; abdomen nontender Musculoskeletal: Head/Neck/Chest: normocephalic and head atraumatic negative for edema, peripheral pulses intact Skin: no rashes, warm and dry Neurologic: awake; not confused Speech / Cognition: normal speech Psychiatric: A+Ox3, euthymic affect Principal Diagnosis Diabetic Ketoacidosis with new onset Diabetes Mellitus Discharge Exam Constitutional well developed, well nourished, cooperative and comfortable Eyes PERRL and EOM intact bilaterally ENMT external ear and nose normal, oropharynx normal Neck neck supple, ROM intact Respiratory normal respiratory effort, lungs clear to auscultation Auscultation: no crackles, no rales and no wheezes Cardiovascular RRR, no murmur, no edema Heart Sounds: normal S1 and normal S2 Vessels: normal peripheral pulses Gastrointestinal (Abdomen) normal bowel sounds, soft, nontender, no hepatosplenomegaly Musculoskeletal no cyanosis or clubbing, extremities motor strength 5/5 Skin no rashes, warm and dry Neurologic CN's II-XI intact bilaterally, moves all extremities and awake Psychiatric Orientation: oriented x 3 Apperance: appeared stated age Eye Contact: good eye contact Thought Process: linear/logical thought process Discharge Data Allergies Allergy/AdvReac Type Severity Reaction Status Date / Time No Known Allergies Allergy Unverified 11/24/18 14:39 Consultations 11/24/18 14:24 ED Decision to Admit Stat 11/24/18 16:26 Consult Case Management - Discharge Planning Routine Consult Health Information Management Stat Consult Drywall Sander Routine Consult Drywall Sander Routine Consult Drywall Sander Routine Ordered Studies 11/24/18 14:36 CT head/brain wo con Stat Hospital Course (1) Type 1 diabetes: Rufino Can is a 23 y.o male with no significant past medical history admitted with recent altered mental status, weight loss and persistent nausea and vomiting found to be in Diabetic Ketoacidosis secondary to new onset Diabetes. Diabetic ketoacidosis secondary to New Onset Diabetes, type 1 Metabolic Encephalopathy secondary to DKA Upon admission on 11/24/18 Rufino was found to have a blood sugar of 1275 and an anion gap metabolic acidosis with compensatory tachypnea. He was placed on supplemental oxygen, Insulin drip, and IVF requiring admission to the ICU. Initial labs significant for a pH of 7.02 , HCO3 of 3, anion gap of 38, elevated serum ketones, lactate of 6.7, BUN of 54, and urine ketones/glucose. He also had electrolyte derangements consisting of hyperkalemia 5.77, Mag of 3.1 , and Na of 129. Leukcoytosis of 29.5 was present which was likely secondary to DKA. CT of the head was obtained due to altered mental status and findings were negative. He also received a chest xray due to tachypnea which was also negative. On day 2 of admission, Rufino's confusion resolved, his pH corrected to 7.37, RAS resolved with BUN of 20 and Creatinine of 1.3. IVF were continued and insulin drip was discontinued as the anion gap closed. Subcutaneous insulin was initiated. In addition electrolyte derangements improved with bicarb increase to 17, leukocytosis improvement to 16.8, and lactate improvement to 0.7. The telehealth nurse educator and glycemic educator followed Mr. Can closely and he was transferred to the floor. Blood cultures and urine cultures obtained during admission were negative for infection. On day 3 of admission Mr. Can continued to improve and did well with subcutaneous insulin injections while diabetic/glycemic educators provided detailed assistance. The decision was made to discharge home on Lantus and Novolog. Upon discharge prescriptions for a glucometer, pen needles, test strips, lancets, and insulin were given. Detailed instructions on how to administer insulin and carb counting were provided for the patient through the assistance of diabetic educators. During the admission Rufino voided well, tolerated PO well, and ambulated without difficulty. Rufino Can was discharged to home with family in stable condition on 11/27/2018. Follow-up appointment scheduled with Dr. Bowles. (2) Leukocytosis: (3) DKA (diabetic ketoacidoses): (4) Metabolic acidosis: (5) Hyperglycemia: (6) Hyperkalemia: (7) Altered mental status: Total Time Total Time Spent Total Time Spent (In Minutes): 60 minutes Total Time Includes: Examination of the Patient and Medication Reconciliation Discharge Plan Discharge Items Patient Disposition: Home - Self-Care Reason For Visit: DKA Discharge Diagnosis: Type 1 Diabetes Mellitus Condition: Good Discharge Goals: Learn about illness, Prevent disease and Therapeutic intervention Activity: Resume your previous activity Non-emergency contact: Primary Care Provider Call non-emergency contact if: you have any medication questions Follow-up/Referrals: [facility] [Provider Group] - 12/11/18 9:20 am (Please, follow up at [facility] Endocrinology Office with Dr. France Liao on FridayDecember 11 at 9:20 am and FridayDecember 16 at 1 :15 pm. They like you to have two appointments in a close timeframe. *This office is located at [address] [place] [address] [address] in [place]. This is the big building located next to this hospital. If you have any questions, call the office at [phone].) James Bowles MD [Primary Care Provider] - 11/30/18 2:00 pm (Please, follow up with Dr. Avalos on FridayNovember 30 at 2:00 pm. *This office is located in [address] of [facility]. This is the big building next to this [facility]. The address is [address] [place] [address]. If you need to change this appointment, call the office at [phone].) Diet: Carb Consistent or DM2 Addtl Provider Instructions: Mr. Can, It was a pleasure to take care of you in the hospital and I look forward to following up with you at our clinic on Thursday 11/30 at 2:00. Our office is located across the street from the hospital at [address] [place] [address]. We are discharging you home with the insulin regimen discussed with you by the diabetic coordinator. We have included prescriptions for insulin, insulin pen needles, glucometer, test strips and lancets. You will be following the plan laid out by the telehealth nurse educator, which includes 16 units of Lantus nightly and NovoLog correction factor 40 (starting at blood sugars greater than 150 mg/dl, carb ratio 1 unit of insulin for every 10g of carbs. I've included some information regarding your diagnosis below: What is type 1 diabetes? Type 1 diabetes (sometimes called type 1 "diabetes mellitus") is a disorder that disrupts the way your body uses sugar. All the cells in your body need sugar to work normally. Sugar gets into cells with the help of a hormone called insulin. If there is not enough insulin, or if the body stops responding to insulin, sugar builds up in the blood. That is what happens to people with diabetes. There are 2 types of diabetes. People with type 1 diabetes make little or no insulin. People with type 2 diabetes sometimes also make too little insulin, but more often the problem is that their cells do not respond to insulin. How is type 1 diabetes treated? Treatment for type 1 diabetes involves 2 cox parts: �Measuring your blood sugar often, to make sure it does not get too high or too low. (Your doctor or nurse will explain how to measure your blood sugar, and how often to do it.) �Using insulin shots or an insulin pump to keep your blood sugar levels in the right range. (An insulin pump is a device that you wear close to your body. It is connected to tube that goes under your skin and supplies insulin.) People with type 1 diabetes also need to carefully plan their meals and activity levels. That's because eating raises blood sugar, while being active lowers it. Despite the need to plan, people with diabetes can have normal diets , be active, eat out, and do all the things that most other people do. How often do I need to see my doctor or nurse? You will probably need to see your doctor or nurse at least 3 or 4 times a year. Sometimes you will need more visits to learn how to manage your diabetes or if your blood sugar is not well controlled. During your visits, your doctor or nurse will want to measure your blood sugar using a test called "A1C." This test tells you your average blood sugar level over the last few months. Its results will help your doctor or nurse decide whether to adjust your treatment. During some of your visits, your doctor or nurse will also check other aspects of your health. For instance, he or she might measure your blood pressure or cholesterol. It is very important that you keep all your appointments with your doctor or nurse. Why is it important to keep my blood sugar close to normal? Having high blood sugar can cause serious problems over time. It can lead to: �Nerve damage �Kidney disease �Vision problems (or even blindness) �Pain or loss of feeling in the hands and feet �The need to have fingers, toes, or other body parts removed (amputated) �Heart disease and strokes Having low blood sugar can cause problems, too. It can make your heart beat fast , and make you shake and sweat. If blood sugar gets really low, it can cause more serious problems, too. People with very low blood sugar can get headaches, get very sleepy, pass out, or even have seizures. Why is it important to keep my blood pressure and cholesterol low? People with diabetes have a much higher risk of heart disease and strokes than people who do not have diabetes. Keeping blood pressure and cholesterol low can help lower those risks. If your doctor or nurse puts you on blood pressure or cholesterol medicines, be sure to take them. Studies show that these medicines can prevent heart attacks, strokes, and even . Prescriptions: New insulin aspart U-100 [Novolog Flexpen U-100 Insulin] 100 unit/mL insulin pen 40 units SQ DAILY 30 Days Qty: 12 RF: 6 Stand-Alone Forms: [facility] Discharge Orders: Discharge Order (Routine); Ordered 11/27/18 Ordered By: Sandy Woods Admission Data Admit Date/Time: 11/24/18 15:31 Attending Provider: Dea Hoskins Admit Provider: Dayami Nagel Primary Care Provider: James Bowles Other Providers: Rayray Chatman ; Dayami Nagel Service: Medical Other Interventions: Discharge Summary Assessment (RN) Last Done: 11/27/18 11:59 DC Date/Time DO NOT enter until pt leaves facility: 11/27/18 15:30 Supervising Physician Co-Signing Physician Notes Resident Physician Supervision Note: I independently interviewed and examined the patient and verified the cox history and physical, reviewed labs and image studies, discussed the case with the resident Dr. Woods and agree with the findings and care plan. Time spent in discharge 35 min
[2018-11-28] MEDS ORDERED: INSULIN GLARGINE SOLOSTAR 100 UNITS/ML 3 ML PEN SC SCH (17:00)
== END 2018-11-27 15:30 | disposition home or self-care (01) | DRG 637 ==
LOC: ED 13:22 → SUATTDRO 15:31 → 1E 15:31 → 2N 11-25 10:15 → 4E 11-25 18:22